=== PATIENT | female | born 1980 | race Caucasian/White ===

== ENCOUNTER 2022-10-27 01:35 | Outpatient (CLI) | payer MEDICAID, SELFPAY | END 2022-10-27 01:36 | disposition home or self-care (01) | LOC: AMB 10-30 16:25 | PROVIDERS: PCP Family Medicine; Visit Provider Family Medicine | DX: R06.09 Other forms of dyspnea (principal) | CPT/HCPCS: A0425; A0427 ==

== ENCOUNTER 2022-10-27 02:01 | Inpatient (IN) | payer MEDICAID, SELFPAY ==
[2022-10-27] VITALS (30 sets, daily range): BP systolic 50–131; BP diastolic 28–85; PULSE 94–128; RESP 16–28; TEMP 36.8–38.4; O2SAT 86–100; BMI 17.5
--- NOTE | 2022-10-27 02:17 | CRLHL7_ITS ---
For Patients: As a result of the Century Cures Act, medical imaging exams and procedure reports are released immediately into your electronic medical record. You may view this report before your referring provider. If you have questions, please contact your health care provider. INDICATION: Pneumonia TECHNIQUE: Chest radiograph 2 views COMPARISON: None FINDINGS: Mediastinum: The mediastinum is normal in appearance. The heart silhouette is normal in size and morphology. Lung: Severe bilateral patchy airspace consolidation is present consistent with pneumonia. No sign of pleural effusion seen. No pneumothorax is identified. Bone and Soft tissue: Unremarkable for age. IMPRESSION: 1. Severe bilateral patchy airspace consolidation is present and likely due to pneumonia. Follow-up imaging is recommended to document resolution. Dictated by Nav New MD @ 10/27/2022 3:02:55 AM Dictated by: Nav New MD @ 10/27/2022 03:03:02 (Electronically Signed)
[2022-10-27] MEDS: ACETAMINOPHEN 500 MG TABLET 1000 MG PO (02:19)
--- NOTE | 2022-10-27 02:20 | ED.GENADULT ---
HPI - General Adult General Time Seen by Provider: 02:15 Date Seen: 10/27/22 Chief complaint: Shortness of Breath/Dyspnea Stated complaint: Shortness of breath Time Seen by Provider: 10/27/22 02:17 Source: patient Mode of arrival: EMS Limitations: no limitations History of Present Illness HPI narrative: Patient is a 42-year-old female who has been ill for the past five days with cough, shortness of breath, body aches, fever to an unknown degree. She was seen in the clinic a couple of days ago but no treatment was given. Today her mother took her to urgent care in [place] and she was diagnosed with bilateral pneumonia and given a shot of Rocephin and started on Levaquin. She has had one dose of the Levaquin so far. They suggested that she be admitted but she refused and just wanted to go to her mother's home. She has been unable to sleep because of cough and body aches and shortness of breath. She is brought in by EMS. She has not had any Tylenol or ibuprofen in almost 24 hours. She states that she is drinking well but is not eating. No vomiting or diarrhea. She was tested for COVID and influenza in those results apparently were negative. I cannot access those records or her chest x-ray. She tells me that the pneumonia was ?everywhere ?. She has never had pneumonia before. She has a 1/2 pack per day smoker. Her only medication is gabapentin p.r.n. for anxiety. Related Data Home Medications Medication Instructions Recorded Confirmed gabapentin 400 mg capsule 400 mg PO TID 10/27/22 10/27/22 levofloxacin 500 mg tablet 500 mg PO DAILY 10/27/22 10/27/22 omeprazole 20 mg capsule,delayed 20 mg PO DAILY 10/27/22 10/27/22 release ondansetron 4 mg disintegrating 4 mg PO Q8-12H PRN 10/27/22 10/27/22 tablet Allergies Allergy/AdvReac Type Severity Reaction Status Date / Time No Known Drug Allergies Allergy Verified 10/27/22 02:26 Review of Systems Narrative: Review of systems is outlined above otherwise noted to be negative. [facility] Medical History (Updated 10/27/22 @ 03:14 by Avelino Jackson MD) Community acquired pneumonia Generalized anxiety disorder Social History (Updated 10/27/22 @ 03:13 by Avelino aJckson MD) Narrative: Single, smoker, works for a [employer] company Exam Narrative: Exam Narrative: Vitals noted. O2 sat is 92% on room air. She does appear ill. She is tachycardic in the 130s. HEENT: Conjunctiva clear. Tympanic membranes are pearly white bilaterally. Posterior pharynx is clear without erythema or exudate. Mucous membranes are dry. Neck is supple without adenopathy, thyromegaly, carotid bruit. Lungs: Coarse and congested with harsh rhonchi throughout. Mild expiratory wheezes. No accessory muscle use. There is pain with deep inspiration and with coughing. Heart: Tachycardic but regular without murmur. Abdomen: Soft and nontender. No guarding, rigidity, rebound. Bowel sounds are normal. No palpable masses. Extremities: No cyanosis or edema. Good distal pulses. Skin: No abnormalities noted of the exposed skin. Neurologic: Awake, alert, fully oriented. Neurologic exam is nonfocal. Const: Vital Signs, click to edit/add: Vital Signs - 24 hr 10/27/22 02:17 10/27/22 02:55 10/27/22 03:00 Temperature 101.0 F H Pulse Rate 126 H 118 H Pulse Rate [Left P ulse Oximeter] 128 H Respiratory Rate 28 H Blood Pressure Blood Pressure [Le ft Upper Arm] 131/64 Pulse Oximetry 100 86 L 92 Oxygen Delivery Me thod Nasal Cannula Fraction of Inspir ed Oxygen 0.44 10/27/22 03:04 10/27/22 03:05 10/27/22 03:16 Temperature Pulse Rate 120 H 121 H Pulse Rate [Left P ulse Oximeter] Respiratory Rate Blood Pressure 50/28 L 109/85 128/74 Blood Pressure [Le ft Upper Arm] Pulse Oximetry 95 92 Oxygen Delivery Me thod Fraction of Inspir ed Oxygen Course Course Hospital Course: Patient seen and examined. She is tachycardic and does appear ill. IV is established and she is given a 1 L bolus of normal saline, Tylenol 1000 mg orally, Toradol 15 mg IV. Labs a chest x-ray are ordered. Reevaluation(s) Reevaluation #1: EKG shows sinus tachycardia with a rate of 134. No acute ST or T-wave changes. Chest x-ray shows bilateral multi lobar pneumonia. CBC is normal. BMP shows a sodium 122. At times patient's O2 sats dropped to 85% and she is started on 2 L of nasal cannula oxygen. D-dimer still pending but I did order a CT of her chest with IV contrast and we will contact [facility] for admission. Reevaluation #2: D-dimer has returned at 3.43. CT scan confirms multi lobar pneumonia but no pulmonary embolism. She received 1 g of Rocephin in urgent care and I gave her another 1 g dose here. I contacted [facility] who agreed to admission. Vital Signs Vital signs: Initial Vital Signs Temperature 101.0 F H 10/27/22 02:17 Temperature Source Temporal Artery Scan 10/27/22 02:17 Pulse Rate 128 H 10/27/22 02:17 Pulse Rhythm 10/27/22 02:17 Respiratory Rate 28 H 10/27/22 02:17 Blood Pressure 131/64 10/27/22 02:17 Blood Pressure Mean 86 10/27/22 02:17 Blood Pressure Position High-Fowlers 10/27/22 02:17 Pulse Oximetry 100 10/27/22 02:17 Oxygen Delivery Method 10/27/22 02:17 Fraction of Inspired Oxygen 0.44 10/27/22 02:17 Vital Signs Temperature 101.0 F H 10/27/22 02:17 Pulse Rate 128 H 10/27/22 02:17 Respiratory Rate 28 H 10/27/22 02:17 Blood Pressure 131/64 10/27/22 02:17 Pulse Oximetry 100 10/27/22 02:17 Oxygen Delivery Method 10/27/22 02:17 Fraction of Inspired Oxygen 0.44 10/27/22 02:17 Temperature 101.0 F H 10/27/22 02:17 Pulse Rate 121 H 10/27/22 03:05 Respiratory Rate 28 H 10/27/22 02:17 Blood Pressure 128/74 10/27/22 03:16 Pulse Oximetry 92 10/27/22 03:05 Oxygen Delivery Method 10/27/22 02:17 Fraction of Inspired Oxygen 0.44 10/27/22 02:17 Medical Decision Making Lab Data Labs: Lab Results 10/27/22 10/27/22 10/27/22 Range/Units 02:40 02:40 02:40 WBC 6.83 (4.50-11.00) K/uL RBC 4.41 (4.00-5.20) m/uL Hgb 12.8 (12.0-16.0) gm/dL Hct 37.9 (33.0-51.0) % MCV 86 (80-100) fL MCH 29 (26-34) pg MCHC 34 (32-36) gm/dL RDW Coeff of Bib 13.0 (11.5-15.5) % Plt Count 223 (140-440) K/uL Neut % (Auto) 72.9 H (42.0-72.0) % Lymph % (Auto) 7.8 L (20-44) % [place] % (Auto) 17.9 H (0.0-11.0) % Eos % (Auto) 0.3 (0.0-7.0) % Baso % (Auto) 0.1 (0.0-3.0) % Neut # (Auto) 5.00 (1.7-7.0) K/uL Lymph # (Auto) 0.50 L (0.90-2.90) K/uL [place] # (Auto) 1.20 H (0.00-0.90) K/UL Eos # (Auto) 0.02 (0.00-0.50) K/uL Baso # (Auto) 0.01 (0.00-0.30) K/uL Diff Slide Review Acceptable Review (Acceptable) D-Dimer Quant (PE/DVT) 3.43 H (0.00-0.50) ug/ml Sodium 122 L* (135-149) mmol/L Potassium 3.4 L (3.6-5.1) mmol/L Chloride 91 L (96-114) mmol/L Carbon Dioxide 24 (20-32) mmol/L BUN 11 (5-24) mg/dL Creatinine 0.7 (0.5-1.5) mg/dL Estimated GFR 111 ml/min Glucose 110 (60-115) mg/dL Lactate (0.5-1.9) mmol/L Calcium 8.4 (8.4-10.6) mg/dL SARS-CoV-2 (PCR) (Negative) 10/27/22 10/27/22 Range/Units 02:40 03:05 WBC (4.50-11.00) K/uL RBC (4.00-5.20) m/uL Hgb (12.0-16.0) gm/dL Hct (33.0-51.0) % MCV (80-100) fL MCH (26-34) pg MCHC (32-36) gm/dL RDW Coeff of Bib (11.5-15.5) % Plt Count (140-440) K/uL Neut % (Auto) (42.0-72.0) % Lymph % (Auto) (20-44) % [place] % (Auto) (0.0-11.0) % Eos % (Auto) (0.0-7.0) % Baso % (Auto) (0.0-3.0) % Neut # (Auto) (1.7-7.0) K/uL Lymph # (Auto) (0.90-2.90) K/uL [place] # (Auto) (0.00-0.90) K/UL Eos # (Auto) (0.00-0.50) K/uL Baso # (Auto) (0.00-0.30) K/uL Diff Slide Review (Acceptable) D-Dimer Quant (PE/DVT) (0.00-0.50) ug/ml Sodium (135-149) mmol/L Potassium (3.6-5.1) mmol/L Chloride (96-114) mmol/L Carbon Dioxide (20-32) mmol/L BUN (5-24) mg/dL Creatinine (0.5-1.5) mg/dL Estimated GFR ml/min Glucose (60-115) mg/dL Lactate 1.5 (0.5-1.9) mmol/L Calcium (8.4-10.6) mg/dL SARS-CoV-2 (PCR) Negative SARS-CoV-2 (Negative) Discharge Plan Discharge Clinical Impression: Community acquired pneumonia Patient Disposition: Admitted As Inpatient Condition: Stable
[2022-10-27] MEDS: 0.9 % SODIUM CHLORIDE 1000 ml 1,000 ML IV (02:40)
[2022-10-27] MEDS: KETOROLAC 15 MG/ML inj IVP ×3 (02:40→18:26)
[2022-10-27 02:44] LABS: Lactate* 1.5 mmol/L (0.5-1.9)
[2022-10-27 02:47] LABS: Basophils Absolute Auto 0.01 K/uL (0.00-0.30); Basophils Percent Auto 0.1 % (0.0-3.0); Eosinophils Absolute Auto 0.02 K/uL (0.00-0.50); Eosinophils Percent Auto 0.3 % (0.0-7.0); Hematocrit 37.9 % (33.0-51.0); Hemoglobin* 12.8 gm/dL (12.0-16.0); Immature Granulocytes Abs Auto 0.07 K/uL (0.00-0.30); Lymphocytes Percent Auto 7.8 % (20-44); Mean Corpuscular HGB Conc 34 gm/dL (32-36); Mean Corpuscular Hemoglobin 29 pg (26-34); Mean Corpuscular Volume 86 fL (80-100); Monocytes Percent Auto 17.9 % (0.0-11.0); Neutrophils Percent Auto 72.9 % (42.0-72.0); Platelet Count* 223 K/uL (140-440); Red Blood Count 4.41 m/uL (4.00-5.20); White Blood Count* 6.83 K/uL (4.50-11.00)
[2022-10-27 02:48] LABS: Slide Review Reflex Yes
[2022-10-27 02:49] LABS: Slide Review Acceptable Review (Acceptable)
--- NOTE | 2022-10-27 02:52 | ED.NURSE ---
Patient to radiology via w/c
[2022-10-27 03:00] LABS: Chloride* 91 mmol/L (96-114); Potassium* 3.4 mmol/L (3.6-5.1)
[2022-10-27 03:03] LABS: Carbon Dioxide* 24 mmol/L (20-32); Creatinine* 0.7 mg/dL (0.5-1.5); Estimated Glomerular Filt Rate 111 ml/min
[2022-10-27 03:04] LABS: Blood Urea Nitrogen* 11 mg/dL (5-24); Calcium* 8.4 mg/dL (8.4-10.6); Glucose* 110 mg/dL (60-115)
[2022-10-27 03:05] LABS: Sodium* 122 mmol/L (135-149)
--- NOTE | 2022-10-27 03:06 | CRLHL7_ITS ---
For Patients: As a result of the Century Cures Act, medical imaging exams and procedure reports are released immediately into your electronic medical record. You may view this report before your referring provider. If you have questions, please contact your health care provider. INDICATION: Hypoxia. Pneumonia. TECHNIQUE: CT chest PE was acquired with 50 cc Isovue 370 IV contrast. COMPARISON: Chest x-ray October 27, 2021. FINDINGS: Heart and vasculature: Contrast opacification of the pulmonary arterial tree is adequate. No sign of pulmonary embolism. Heart size is normal. Thoracic aorta and pulmonary artery are normal in caliber. Lungs and pleura: Large dense bilateral air space infiltrates in both upper lobes and both lower lobes. No suspicious nodule. No pleural effusions, pleural thickening, or pneumothorax. Lymph nodes/mediastinum: No mediastinal, hilar, or axillary adenopathy. Chest wall: No masses. Upper abdomen: No acute or significant findings. Bones: Unremarkable for age. IMPRESSION: 1. No pulmonary embolism. 2. Severe bilateral pneumonia. Please note that all CT scans at this facility use dose modulation, iterative reconstruction, and/or weight-based dosing when appropriate to reduce radiation dose to as low as reasonably achievable. Dictated by Ki Doyle MD @ 10/27/2022 4:05:36 AM (Electronically Signed)
[2022-10-27 03:13] LABS: D Dimer Quantitative* 3.43 ug/ml (0.00-0.50)
[2022-10-27 03:42] LABS: SARS PCR* Negative SARS-CoV-2 (Negative)
[2022-10-27] MEDS: cefTRIAXone 1 GM in 0.9 % SODIUM CHLORIDE Mini-bag 100 ML IVPB ×2 (04:48→21:28)
--- NOTE | 2022-10-27 05:37 | ED.NURSE ---
Mini Report sent
--- NOTE | 2022-10-27 05:51 | ED.NURSE ---
Report to LULA Webb, who accepts transfer of patient care. Patient transported to [facility] via cart with all patient belongings.
[2022-10-27] MEDS: LACTATED RINGERS 1000 ML 1,000 ML 125 ML IV ×2 (06:00→14:09)
--- NOTE | 2022-10-27 07:50 | PC.NURSE ---
Admit 0600 Pt admitted from ER into 260 with pneumonia. Alert and oriented. Pleasant and cooperative. Reports 7/10 pain to chest, back and abdomen with coughing/movement. Requiring 1L of supplemental oxygen to maintain sats >90%. LR at 125mL/hr. Alayna Ribera, present at bedside.
--- NOTE | 2022-10-27 07:58 | P.CCN_ITS ---
Assessment and Plan Assessment and plan (1) Hypoxia: Status: Acute (2) Hyponatremia: Status: Acute (3) Community acquired pneumonia: Status: Acute (4) Generalized anxiety disorder: Status: Acute Plan [facility] Hospitalist Consultation 42-year-old female referred for the ER for treatment of pneumonia and acute hypoxic respiratory failure. She has been sick for the past 5 days noting cough, shortness of breath body aches and fevers. She has had difficulty sleeping because of the cough and has a poor appetite although notes that she is drinking well just not eating. The cough is productive of sputum. She had diarrhea for a few days but that resolved. She was seen in urgent care on October 26 and was diagnosed with bilateral pneumonia. Patient and mother note that influenza, rsv, covid were negative. She was given an IM Rocephin around 7pm and started on Levaquin which she took around 10pm. They advised admission to the hospital but she refused and went to her mother's home but due to her condition, she was subsequently brought to the ER by EMS tonight. In the ER she was found to be febrile to 101, tachycardic to 128 with a blood pressure 131/64 and sats were in the 80s on room air. Improved to 90s on [address] scan was done which confirms multilobar pneumonia and excludes pulmonary embolism. Most notable laboratory studies includes a sodium of 122. Creatinine WBC, hemoglobin and platelets as well as lactic acid, BUN and creatinine are all normal. COVID negative She received 1 L fluids, Toradol and 1 gram ceftriaxone (had received 1 gram prior IM in urgent care). She reports the Toradol helped with her generalized pain, has some abdominal discomfort which she attributes to her coughing. In the past she was hospitalized related to alcohol use but reports that is not longer an issue and she rarely consumes alcohol. She describes herself as always being thin but her mother thinks she is too skinny and has not been this thin in quite awhile. Does not endorse unintentional weight loss. Notes that when she is anxious her appetite is poor. Home Medications: see EMR: Includes GABApentin for anxiety, recently started levofloxacin For pneumonia. Pertinent Medical History: problematic alcohol use in the past but resolved. Anxiety Pertinent Social History: Single, works seasonally for a [employer] company thus has not started back yet for this season. Does smoke 1 ppd cigarettes per day. Marijuana occasionally, Exam (performed via interactive video with assistance of bedside nurse): General: alert, cooperative, no acute distress, appears acutely ill HEENT: oral mucosa pink and moist without erythema Lungs: decreased throughout without obvious crackle or wheeze CV: regular rate and rhythm without loud murmur rub or gallop Abd: some tenderness in RLQ attributed to couging Ext: no pitting edema noted Skin: no rashes, bruises or lesions appreciated on gross visualization of exposed skin Neuro: alert, oriented x 3. facial muscles grossly intact, moves all extremities Assessment and Plan: Multifocal bilateral pneumonia, community-acquired Acute hypoxic respiratory failure associated with above Hyponatremia Hypokalemia Underweight with BMI 17.5 Continue 2 g Rocephin daily. Add azithromycin 500 mg p.o. daily. Please have been time to start it 3 PM and noon respectively since she did get 1 g yesterday and then another gram of ceftriaxone in the ER. Diagnostics ordered and to be followed include sputum culture, Legionella and strep pneumo antigens, Liver panel and magnesium Requested records from UC visit Repeat sodium now, and at noon: further trend per attending. Suspect related to low solute intake and pneumonia but if failing to improve will need urine studies. 20meq Kcl now Resumed gabapentin and omeprazole Will need to follow-up x-ray to ensure resolution BMI of 17.5, unclear cause Thank you for including [facility] in the patients care. This service is available for further assistance as requested by your care team by calling [phone].
[2022-10-27] MEDS: POTASSIUM CHLORIDE 10 MEQ CAPSULE ER 20 MEQ PO (08:35)
[2022-10-27 08:41] LABS: Sodium* 129 mmol/L (135-149)
[2022-10-27 08:44] LABS: Alanine Aminotransferase* 17 U/L (4-35); Alkaline Phosphatase* 102 U/L (40-150); Aspartate Amino Transferase* 20 U/L (12-35); Bilirubin Direct* 0.4 mg/dL (0.0-0.5); Bilirubin Total* 0.5 mg/dL (0.1-1.5); Magnesium* 2.1 mg/dL (1.5-2.6); Total Protein* 6.2 g/dL (6.0-8.3)
[2022-10-27] MEDS: ACETAMINOPHEN 325 MG TABLET 650 MG PO ×3 (09:42→22:56)
[2022-10-27] MEDS: GABAPENTIN 100 MG CAPSULE 400 MG PO (09:42)
[2022-10-27] MEDS: hydrOXYzine pamoate 25 MG CAPSULE PO (09:43)
[2022-10-27] MEDS: AZITHROMYCIN 500 MG in 0.9 % SODIUM CHLORIDE 250 ml 250 ML 255 MG IVPB (09:45)
[2022-10-27 12:37] LABS: Chloride* 107 mmol/L (96-114); Potassium* 3.7 mmol/L (3.6-5.1); Sodium* 132 mmol/L (135-149)
[2022-10-27 12:40] LABS: Carbon Dioxide* 23 mmol/L (20-32); Creatinine* 0.7 mg/dL (0.5-1.5); Est. Creatinine Clearance* 79.44; Estimated Glomerular Filt Rate 111 ml/min
[2022-10-27 12:41] LABS: Blood Urea Nitrogen* 11 mg/dL (5-24); Calcium* 7.6 mg/dL (8.4-10.6); Glucose* 112 mg/dL (60-115)
--- NOTE | 2022-10-27 13:49 | NUTR.NU ---
Nutrition screen complete related to low BMI of 17.5 mg/m2. Patient with hyponatremia and pneumonia. RDN attempted to visit with patient x2. Patient sleeping. This RDN did visit with patient's mom (Alayna and designated caregiver). Alayna reports patient has always been low weight for height. Mom denies any concerns related to nutrition or weight loss. Weight is 104.9#, height is 65. Patient is tolerating a regular diet. Patient ate 90% of breakfast this morning, per nursing. Mom also reports patient's appetite was good this morning and ate well at breakfast. Patient did not eat lunch due to sleeping. Labs reviewed. Skin is intact. RDN to continue to monitor and follow up as needed.
[2022-10-27 14:45] LABS: Appearance Urine Slightly Cloudy (Clear); Bilirubin Urine Negative (Negative); Blood Urine 3+ (Negative); Color Urine Yellow (Yellow); Glucose Urine Negative (Negative); Ketones Urine Negative (Negative); Leukocyte Esterase Urine Negative (Negative); Nitrite Urine Negative (Negative); Protein Urine Negative (Negative); Specific Gravity Urine <= 1.005 (1.000-1.030); Urobilinogen Urine 0.2 (0.2-1.0); pH Urine 6.5 (5.0-8.5)
[2022-10-27 14:52] LABS: Barbiturate Screen Urine Negative (Negative); Benzodiazepines Screen Urine Negative (Negative); Cannabinoid Screen Urine Negative (Negative); Cocaine Screen Urine Negative (Negative); Methadone Screen Urine Negative (Negative); Opiate Screen Urine Negative (Negative); Oxycodone Screen Urine Negative (Negative); Phencyclidine Screen Urine Negative (Negative); Tricyclic Antidepressant Urine Negative (Negative)
[2022-10-27 14:58] LABS: Methamphetamines Screen Urine POSITIVE (Negative)
[2022-10-27 14:59] LABS: Amphetamine Screen Urine POSITIVE (Negative)
[2022-10-27 15:03] LABS: RBC Urine 0-2 (0-2); WBC Urine 0-2 (0-5)
[2022-10-27 15:13] LABS: HIV 1/2/P24 Combo Screen* Negative (Negative)
--- NOTE | 2022-10-27 15:39 | PM.IMHP1 ---
Hospitalist- H&P: HPI History of Present Illness Date Seen: 10/27/22 Chief complaint: Shortness of breath Narrative: Neelima Martinez is a 42 year old female admitted to the hospital with progressive cough, fever and dyspnea for 5 days. About 5 days ago she had onset of what she thought was a cold. Symptoms got worse over the subsequent days including worsening cough, pleuritic chest pain, fever, profound fatigue and malaise and dyspnea. She was initially seen at a clinic in [place] for this on October 23. She was referred to the emergency room for evaluation but apparently went there and found there was a long waiting line to be seen so she went home. That initial visit she was tested for COVID, RSV, influenza and these were all apparently negative. Yesterday she went to an urgent care clinic where she was diagnosed with bilateral pneumonia and referred to a hospital for admission. She declined admission at that time. She did receive Rocephin 1 g in the urgent care and was started on Levaquin. She came to our emergency room as she continued to feel poorly. In our emergency room she was found to be febrile with a temperature of 101? F, tachycardic with a pulse of 126 and hypoxic with O2 sat of 86% on room air. Chest x-ray showed patchy bilateral pneumonia and this was confirmed with CT scan and no finding of pulmonary embolism. She was also found to be hyponatremic with a sodium of 122. She has received Levaquin, ceftriaxone, Zithromax and IV fluids. She reports feeling better today with these treatments. Other associated symptoms include chest pain and shoulder pain associated with coughing. She also has some epigastric abdominal pain associated with coughing. She reports a very poor appetite and has been only drinking water in juice for the last several days. She has had some nonbloody diarrhea. No urinary symptoms. She denies . She does smoke 1 pack of cigarettes per day. Has had very little to smoke this week. No previous history of lung disease or COPD or asthma She is not aware of any exposures to anybody else who has been ill. Review of Systems Narrative: Prior to this week she reports that she was doing well without recent symptoms of illness. [facility] Medical History (Updated 10/27/22 @ 16:08 by Trenton Lamar MD) Alcohol abuse Community acquired pneumonia Generalized anxiety disorder Malnutrition Methamphetamine abuse Surgical History (Updated 10/27/22 @ 15:51 by Trenton Lamar MD) History of tooth extraction Family History (Updated 10/27/22 @ 15:51 by Trenton Lamar MD) Brother Asthma Mother Alcohol dependence Social History (Updated 10/27/22 @ 15:53 by Trenton Lamar MD) Narrative: She lives in [place] with her boyfriend. 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 She smokes up to a pack of cigarettes per day. Currently did not drinking alcohol. She is in [place] because her mom lives here. Code status is full. Highest level of school completed/degree received: some college, no degree Smoking Status: Current every day smoker What tobacco products do you use: cigarettes Do you use any of these nicotine containing products: None Second hand tobacco smoke exposure: No How often do you have a drink containing alcohol: never How often do you have six or more drinks on one occasion: Never AUDIT-C Alcohol total score: 0 Non-prescribed substance use: marijuana (any form) Non-prescribed substance use details: marijuana 1-2 times a week Caffeine: Yes service: No Meds Home Medications and Allergies Home Medications Medication Instructions Recorded Confirmed Type gabapentin 400 mg capsule 400 mg PO TID PRN 10/27/22 10/27/22 History levofloxacin 500 mg tablet 500 mg PO DAILY 10/27/22 10/27/22 History Allergies Allergy/AdvReac Type Severity Reaction Status Date / Time escitalopram [From Lexapro] AdvReac Shakiness Verified 10/27/22 07:49 Exam Narrative: Exam Narrative: She is sleeping and arouses to voice. She is then is alert and oriented to her circumstances. She is pleasant cooperative. She gives her own history. Head is without trauma. Eyes normal. Oropharynx is normal. Neck is supple without mass or adenopathy. Respirations with mild increased work of breathing and rate of breathing. She has relatively diffuse crackles posteriorly and anteriorly. Cardiovascular: S1, S2, regular tachycardia. No murmur gallop or rub. Abdomen: Bowel sounds active. Abdomen is soft with mild epigastric tenderness. There is no mass. External genitalia normal. Extremities with intact pulses and good capillary refill. No edema. No skin rash. She moves all 4 extremities well. Const: Vital Signs, click to edit/add: Vital Signs - 24 hr 10/27/22 02:17 10/27/22 02:55 10/27/22 03:00 Temperature 101.0 F H Pulse Rate 126 H 118 H Pulse Rate [Left P ulse Oximeter] 128 H Pulse Rate [Pulse Oximeter] Respiratory Rate 28 H Blood Pressure Blood Pressure [Le ft Arm] Blood Pressure [Le ft Upper Arm] 131/64 Blood Pressure [Ri ght Arm] Pulse Oximetry 100 86 L 92 Oxygen Delivery Me thod Nasal Cannula Oxygen Flow Rate Fraction of Inspir ed Oxygen 0.44 10/27/22 03:04 10/27/22 03:05 10/27/22 03:16 Temperature Pulse Rate 120 H 121 H Pulse Rate [Left P ulse Oximeter] Pulse Rate [Pulse Oximeter] Respiratory Rate Blood Pressure 50/28 L 109/85 128/74 Blood Pressure [Le ft Arm] Blood Pressure [Le ft Upper Arm] Blood Pressure [Ri ght Arm] Pulse Oximetry 95 92 Oxygen Delivery Me thod Oxygen Flow Rate Fraction of Inspir ed Oxygen 10/27/22 03:39 10/27/22 03:40 10/27/22 03:48 Temperature Pulse Rate 112 H 107 H 106 H Pulse Rate [Left P ulse Oximeter] Pulse Rate [Pulse Oximeter] Respiratory Rate Blood Pressure 128/71 Blood Pressure [Le ft Arm] Blood Pressure [Le ft Upper Arm] Blood Pressure [Ri ght Arm] Pulse Oximetry 88 88 90 Oxygen Delivery Me thod Oxygen Flow Rate Fraction of Inspir ed Oxygen 10/27/22 04:00 10/27/22 04:01 10/27/22 04:16 Temperature Pulse Rate 101 H 104 H 103 H Pulse Rate [Left P ulse Oximeter] Pulse Rate [Pulse Oximeter] Respiratory Rate Blood Pressure 126/69 128/71 Blood Pressure [Le ft Arm] Blood Pressure [Le ft Upper Arm] Blood Pressure [Ri ght Arm] Pulse Oximetry 92 90 97 Oxygen Delivery Me thod Oxygen Flow Rate Fraction of Inspir ed Oxygen 10/27/22 04:20 10/27/22 04:31 10/27/22 04:31 Temperature Pulse Rate 103 H 106 H 104 H Pulse Rate [Left P ulse Oximeter] Pulse Rate [Pulse Oximeter] Respiratory Rate Blood Pressure 125/70 Blood Pressure [Le ft Arm] Blood Pressure [Le ft Upper Arm] Blood Pressure [Ri ght Arm] Pulse Oximetry 99 99 99 Oxygen Delivery Me thod Oxygen Flow Rate Fraction of Inspir ed Oxygen 10/27/22 04:41 10/27/22 04:46 10/27/22 05:01 Temperature Pulse Rate 108 H 105 H 97 Pulse Rate [Left P ulse Oximeter] Pulse Rate [Pulse Oximeter] Respiratory Rate Blood Pressure 130/74 115/73 Blood Pressure [Le ft Arm] Blood Pressure [Le ft Upper Arm] Blood Pressure [Ri ght Arm] Pulse Oximetry 98 99 99 Oxygen Delivery Me thod Oxygen Flow Rate Fraction of Inspir ed Oxygen 10/27/22 05:01 10/27/22 05:16 10/27/22 05:21 Temperature Pulse Rate 101 H 102 H 98 Pulse Rate [Left P ulse Oximeter] Pulse Rate [Pulse Oximeter] Respiratory Rate Blood Pressure 126/74 Blood Pressure [Le ft Arm] Blood Pressure [Le ft Upper Arm] Blood Pressure [Ri ght Arm] Pulse Oximetry 98 98 98 Oxygen Delivery Me thod Oxygen Flow Rate Fraction of Inspir ed Oxygen 10/27/22 05:31 10/27/22 05:40 10/27/22 06:44 Temperature 98.8 F Pulse Rate 99 94 Pulse Rate [Left P ulse Oximeter] Pulse Rate [Pulse Oximeter] 99 Respiratory Rate 24 Blood Pressure 116/72 Blood Pressure [Le ft Arm] Blood Pressure [Le ft Upper Arm] Blood Pressure [Ri ght Arm] 103/69 Pulse Oximetry 100 100 92 Oxygen Delivery Me thod Nasal Cannula Oxygen Flow Rate 1 Fraction of Inspir ed Oxygen 10/27/22 11:00 10/27/22 07:30 10/27/22 07:00 Temperature 98.2 F Pulse Rate Pulse Rate [Left P ulse Oximeter] Pulse Rate [Pulse Oximeter] 100 Respiratory Rate 20 20 Blood Pressure Blood Pressure [Le ft Arm] 116/69 Blood Pressure [Le ft Upper Arm] Blood Pressure [Ri ght Arm] Pulse Oximetry 91 91 91 Oxygen Delivery Me thod Nasal Cannula Nasal Cannula Nasal Cannula Oxygen Flow Rate 2 2 2 Fraction of Inspir ed Oxygen Hospitalist - H&P: Result Labs Labs: Short CBC 10/27/22 Range/Units 02:40 WBC 6.83 (4.50-11.00) K/uL Hgb 12.8 (12.0-16.0) gm/dL Hct 37.9 (33.0-51.0) % Plt Count 223 (140-440) K/uL BMP 10/27/22 10/27/22 10/27/22 02:40 08:20 12:15 Sodium 122 L* 129 L 132 L Potassium 3.4 L 3.7 Chloride 91 L 107 Carbon Dioxide 24 23 BUN 11 11 Creatinine 0.7 0.7 Glucose 110 112 Calcium 8.4 7.6 L Liver Function 10/27/22 Range/Units 08:20 Total Bilirubin 0.5 (0.1-1.5) mg/dL Direct Bilirubin 0.4 (0.0-0.5) mg/dL AST 20 (12-35) U/L ALT 17 (4-35) U/L Alkaline Phosphatase 102 (40-150) U/L Albumin 3.0 L (3.3-5.0) g/dL Urine 10/27/22 Range/Units 14:17 Urine Color Yellow (Yellow) Urine Appearance Slightly Cloudy A (Clear) Urine pH 6.5 (5.0-8.5) Ur Specific [place] <= 1.005 (1.000-1.030) Urine Protein Negative (Negative) Urine Glucose (UA) Negative (Negative) Imaging CT scan - chest: Attestation: I have reviewed the pertinent imaging results. Radiologist's impression: INDICATION: Hypoxia. Pneumonia. TECHNIQUE: CT chest PE was acquired with 50 cc Isovue 370 IV contrast. COMPARISON: Chest x-ray October 27, 2021. FINDINGS: Heart and vasculature: Contrast opacification of the pulmonary arterial tree is adequate. No sign of pulmonary embolism. Heart size is normal. Thoracic aorta and pulmonary artery are normal in caliber. Lungs and pleura: Large dense bilateral air space infiltrates in both upper lobes and both lower lobes. No suspicious nodule. No pleural effusions, pleural thickening, or pneumothorax. Lymph nodes/mediastinum: No mediastinal, hilar, or axillary adenopathy. Chest wall: No masses. Upper abdomen: No acute or significant findings. Bones: Unremarkable for age. IMPRESSION: 1. No pulmonary embolism. 2. Severe bilateral pneumonia. Assessment and Plan Assessment and plan (1) Sepsis with acute hypoxic respiratory failure: Problem comment: Tachycardia, fever, hypoxia with pneumonia. Modestly clinically improved over the day today. Continue ceftriaxone and Zithromax Status: Acute (2) Community acquired pneumonia: Problem comment: Relatively severe multifocal pneumonia. Consider other possible etiologies including immunosuppression and bacteremia. Status: Acute (3) Hyponatremia: Problem comment: Likely due to pneumonia and poor oral intake. Likely this is acute hyponatremia. Sodium is correcting too quickly today. Will stop lactated Ringer's and initiate D5W and trend sodium. Status: Acute (4) Methamphetamine abuse: Status: Acute (5) Generalized anxiety disorder: Status: Acute (6) Malnutrition: Problem comment: BMI of 17.5. Albumin of 3.0. Uncertain how much of this is acute and how much is chronic. Follow while hospitalized and then as outpatient Status: Acute Plan Patient remained hospitalized pending clinical improvement. Close monitoring of cardio respiratory status. Close monitoring of vital signs and sodium. Total time spent today is 75 minutes, 50 minutes in coordination of care and discussing with patient and other providers evaluation management of pneumonia.
[2022-10-27] MEDS: GUAIF/DM 200-20 MG/20 ML 118 ML LIQUID PO ×2 (15:44→20:40)
[2022-10-27] MEDS: 5 % DEXTROSE 1000 ML 1,000 ML 100 ML IV ×2 (15:45→18:45)
--- NOTE | 2022-10-27 18:51 | PC.NURSE ---
Pt is alert and oriented, sleepy this shift intermit, resting off and on. Pt c/o pain 8/10 to shoulder, chest, belly and back, PRN Tylenol and Toradol admin and pt states effectiveness. Pt up w/ SBA to bathroom w/ IV pole maneuvering. Pt on 2L sating low 90s%, but did have temp of 101.2 this evening along with sinus tach, provider updated and aware, no new orders continue with abx for PNA. Tolerating diet, voiding large amounts of pale urine, a couple loose stools this shift. Sputum culture sent, UA sent. Pt on D5 at 100ml/hr. Mom at bedside, supportive. Pt uses call light appropriately.
[2022-10-27 20:20] LABS: Sodium* 134 mmol/L (135-149)
[2022-10-27] MEDS: ENOXAPARIN 30 MG/0.3ML INJ SUBCUT (21:30)
[2022-10-27] MEDS: SODIUM CHLORIDE 0.9 % (FLUSH) 10 ML SYRINGE 5 ML IVF (21:31)
[2022-10-27] MEDS: MELATONIN 3 MG TABLET PO (22:59)
[2022-10-28] VITALS (11 sets, daily range): BP systolic 116–137; BP diastolic 68–81; PULSE 92–106; RESP 20–22; TEMP 36.8–37.7; O2SAT 87–95
[2022-10-28] MEDS: KETOROLAC 15 MG/ML inj IVP ×3 (00:53→19:03)
[2022-10-28] MEDS: hydrOXYzine pamoate 25 MG CAPSULE PO ×3 (02:47→21:59)
[2022-10-28] MEDS: GABAPENTIN 100 MG CAPSULE 400 MG PO (02:47)
[2022-10-28] MEDS: cefTRIAXone 2 GM in 0.9 % SODIUM CHLORIDE Mini-bag 100 ML IVPB (05:56)
[2022-10-28 06:29] LABS: Eosinophils Absolute Auto 0.06 K/uL (0.00-0.50); Eosinophils Percent Auto 0.6 % (0.0-7.0); Hematocrit 32.2 % (33.0-51.0); Hemoglobin* 10.9 gm/dL (12.0-16.0); Immature Granulocytes Abs Auto 0.12 K/uL (0.00-0.30); Immature Granulocytes Pct Auto 1.2 %; Lymphocytes Percent Auto 6.9 % (20-44); Mean Corpuscular HGB Conc 34 gm/dL (32-36); Mean Corpuscular Hemoglobin 29 pg (26-34); Mean Corpuscular Volume 87 fL (80-100); Monocytes Percent Auto 16.3 % (0.0-11.0); Platelet Count* 219 K/uL (140-440); RDW Coefficient of Variation % 13.2 % (11.5-15.5); Red Blood Count 3.72 m/uL (4.00-5.20); White Blood Count* 10.25 K/uL (4.50-11.00)
--- NOTE | 2022-10-28 06:30 | PC.NURSE ---
Pt is alert and oriented x 3. Pt?posterior lung sounds have inspiratory wheezes and?are diminished. Pt had productive cough with yellow/cream color sputum at beginning of shift 1900, has transitioned into a dry cough overnight. Pt reports 6 out of 10 pain in back and abdomen from coughing. Pt up in room Ind but calls for assistance with IV pole when going to bathroom. Pt tolerating a regular diet.
[2022-10-28 06:32] LABS: Slide Review Reflex No
[2022-10-28 06:46] LABS: Chloride* 107 mmol/L (96-114); Potassium* 3.5 mmol/L (3.6-5.1); Sodium* 134 mmol/L (135-149)
[2022-10-28 06:49] LABS: Creatinine* 0.7 mg/dL (0.5-1.5); Est. Creatinine Clearance* 79.44; Estimated Glomerular Filt Rate 111 ml/min
[2022-10-28 06:50] LABS: Blood Urea Nitrogen* 8 mg/dL (5-24); Calcium* 7.7 mg/dL (8.4-10.6); Carbon Dioxide* 26 mmol/L (20-32); Glucose* 116 mg/dL (60-115)
[2022-10-28] MEDS: ACETAMINOPHEN 325 MG TABLET 650 MG PO ×3 (07:20→22:02)
[2022-10-28] MEDS: GUAIF/DM 200-20 MG/20 ML 118 ML LIQUID PO ×3 (07:21→21:59)
[2022-10-28 07:23] LABS: C Reactive Protein* 35.9 mg/dL (0.5-1.0)
[2022-10-28 07:58] LABS: Lab Add On Test New Spec Needed
[2022-10-28 07:59] LABS: Magnesium* 2.2 mg/dL (1.5-2.6)
[2022-10-28 08:01] LABS: Ionized Calcium* 1.06 mmol/L (1.11-1.30)
[2022-10-28] MEDS: POTASSIUM BICARB 25 MEQ EFFERVESCENT TAB PO ×2 (08:15→10:13)
--- NOTE | 2022-10-28 09:28 | CRLHL7_ITS ---
For Patients: As a result of the Century Cures Act, medical imaging exams and procedure reports are released immediately into your electronic medical record. You may view this report before your referring provider. If you have questions, please contact your health care provider. INDICATION: Follow up pneumonia TECHNIQUE: Chest 1 view. COMPARISON: Chest x-ray 10/27/[address] chest 10/27/2022 FINDINGS: The heart is normal in size. Pulmonary vasculature is within limits. There is persistent bilateral consolidations, somewhat increased in the right upper lobe. Haziness at the right lung base, represent a pleural effusion. Bones are unremarkable. IMPRESSION: Persistent bilateral consolidations, slightly worsening within the right upper lobe. Increasing haziness at the right lung base, may represent a developing pleural effusion. Dictated by Mahsa Dobbins MD @ 10/28/2022 10:22:56 AM (Electronically Signed)
[2022-10-28] MEDS: PIPERACILLIN/TAZOBACTAM 3.375 GM in 0.9 % SODIUM CHLORIDE Mini-bag 100 ML IVPB ×3 (10:14→22:02)
[2022-10-28] MEDS: SODIUM CHLORIDE 0.9 % (FLUSH) 10 ML SYRINGE 5 ML IVF ×2 (10:14→20:43)
--- NOTE | 2022-10-28 10:31 | RESP.RT ---
PEP-IS; Patient lying in bed resting, respiratory rate 18-22/minute, breathing regular/easy, slightly shallow. On Nasal Cannula (NC) 3 Lpm, SaO2 94%, removed from NC, SaO2 decreased to 88% in 3 minutes, returned to NC SaO2 increased to 94%, remained steady. Bilateral Breath Sounds, with patient taking deep breath both upper lobes diminished with fine crackles noted, Both lower lobes noted with fine/coarse crackles, not as diminished as upper lobes, no wheezing noted. Patient used IS X4 with good effort, promoted good cough for yellow/creme colored, thick secretions. PEP started with patient, explained use of Aerobika, for increased mobilization of secretions and lung recruitment, information on cleaning. Patient made good expiratory effort, with good chest shake, X6. Had patient feel chest shake during exhalation to help understand use, patient understands and verbally states so. PEP also promoted cough for same. With use of IS, PEP, and cough and deep breath SaO2 increased to 96%. RT and Nurse will continue to encourage patient to use IS, PEP and cough and deep breath.
--- NOTE | 2022-10-28 15:33 | P.IMPN_ITS ---
Progress Note: A&P Assessment and plan (1) Sepsis with acute hypoxic respiratory failure: Problem details: Tachycardia, fever, hypoxia with pneumonia. Appears ill today, worse than what was stated yesterday. A recheck to chest x-ray the results are above, which does show slight worsening. Expand antibiotic coverage to Zosyn and vanco, continue azithromycin for atypical coverage and discontinue the Rocephin. Vibratory pep has been started, continue this. Continue nebs p.r.n.. Right-sukhdeep ed chest pain is pleuritic, she does have a small possible pleural effusion which is likely parapneumonic on chest x-ray. I spoke with Dr. Cristobal from General surgery about this pleural effusion and whether not it was enough to do a thoracentesis to look for empyema. She noted that it was not enough fluid to do so at this time. Will continue to monitor symptoms and if worsening further despite expansion of antibiotics, repeat chest x-ray. Status: Acute (2) Community acquired pneumonia: Problem details: Relatively severe multifocal pneumonia. Consider other possible etiologies including immunosuppression and bacteremia. SARs CoV 2 PCR is negative. HIV 1 and 2 are negative. Urine Legionella and strep pneumonia antigens are pending. Status: Acute (3) Tobacco abuse: Status: Chronic (4) Malnutrition: Problem details: BMI of 17.5. Albumin of 3.0. Uncertain how much of this is acute and how much is chronic. Follow while hospitalized and then as outpatient Status: Acute (5) Methamphetamine abuse: Status: Acute (6) Hyponatremia: Problem details: Likely due to pneumonia and poor oral intake. Likely this is acute hyponatremia. Sodium was corrected quickly yesterday, but she remains neurologically intact. Sodium is at 134 and stable, further correction needed. Monitor. Status: Acute (7) Generalized anxiety disorder: Status: Chronic Subjective Time Seen by Provider: 09:20 Date Seen: 10/28/22 Interval history: Neelima complains of feeling worse today. She has had right sided chest pain since her illness began, but it is much worse today with any movement or deep breath. She briefly required 1L more oxygen this morning, but this improved after vibratory PEP. Exam Narrative: Exam Narrative: General: Appears ill. Thin, almost cachectic. Awake, alert, oriented x3. No pallor. No jaundice. Cardiovascular: Mildly tachycardic, regular. No murmurs, gallops, or rubs. Respiratory: Fine crackles throughout, no wheezes. Abdomen: Bowel sounds present. Soft, nondistended, nontender. Extremities: No pedal edema. Const: Vital Signs, click to edit/add: Vital Signs - 24 hr 10/27/22 17:42 10/27/22 21:10 10/27/22 23:00 Temperature 101.2 F H 98.7 F Pulse Rate [Pulse Oximeter] 112 H 109 H 109 H Respiratory Rate 16 16 16 Blood Pressure [Le ft Arm] 126/68 119/60 Pulse Oximetry 94 86 L Oxygen Delivery Me thod Nasal Cannula Nasal Cannula Oxygen Flow Rate 2 2 10/27/22 23:00 10/27/22 23:00 10/28/22 02:34 Temperature 99.3 F 99.0 F Pulse Rate [Pulse Oximeter] 103 H 96 Respiratory Rate 20 20 20 Blood Pressure [Le ft Arm] 121/70 128/71 Pulse Oximetry 93 93 92 Oxygen Delivery Me thod Nasal Cannula Nasal Cannula Nasal Cannula Oxygen Flow Rate 2.5 2.5 2.5 10/28/22 07:00 10/28/22 07:00 10/28/22 07:00 Temperature 99.1 F Pulse Rate [Pulse Oximeter] 101 H 101 H Respiratory Rate 20 20 Blood Pressure [Le ft Arm] 129/77 Pulse Oximetry 92 92 Oxygen Delivery Me thod Nasal Cannula Nasal Cannula Oxygen Flow Rate 2 2 10/28/22 08:45 10/28/22 08:55 10/28/22 10:25 Temperature Pulse Rate [Pulse Oximeter] Respiratory Rate 20 20 20 Blood Pressure [Le ft Arm] Pulse Oximetry 87 L 92 94 Oxygen Delivery Me thod Room Air Nasal Cannula Nasal Cannula Oxygen Flow Rate 2 3 3 10/28/22 10:25 10/28/22 11:00 Temperature 98.8 F Pulse Rate [Pulse Oximeter] 94 Respiratory Rate 20 20 Blood Pressure [Le ft Arm] 120/78 Pulse Oximetry 94 95 Oxygen Delivery Me thod Nasal Cannula Nasal Cannula Oxygen Flow Rate 3 2 Labs Labs: Laboratory Results - last 24 hr 10/27/22 10/28/22 10/28/22 20:04 05:41 05:41 WBC 10.25 RBC 3.72 L Hgb 10.9 L Hct 32.2 L MCV 87 MCH 29 MCHC 34 RDW Coeff of Bib 13.2 Plt Count 219 Neut % (Auto) 75.0 H Lymph % (Auto) 6.9 L Cannon % (Auto) 16.3 H Eos % (Auto) 0.6 Baso % (Auto) 0.0 Neut # (Auto) 7.70 H Lymph # (Auto) 0.70 L Cannon # (Auto) 1.70 H Eos # (Auto) 0.06 Baso # (Auto) 0.00 Sodium 134 L 134 L Potassium 3.5 L Chloride 107 Carbon Dioxide 26 BUN 8 Creatinine 0.7 Estimated Creat Clear 79.44 Estimated GFR 111 Glucose 116 H Calcium 7.[address] Magnesium 2.2 C-Reactive Protein 35.9 H Procalcitonin 25.50 H 10/28/22 07:55 WBC RBC Hgb Hct MCV MCH MCHC RDW Coeff of Bib Plt Count Neut % (Auto) Lymph % (Auto) Cannon % (Auto) Eos % (Auto) Baso % (Auto) Neut # (Auto) Lymph # (Auto) Cannon # (Auto) Eos # (Auto) Baso # (Auto) Sodium Potassium Chloride Carbon Dioxide BUN Creatinine Estimated Creat Clear Estimated GFR Glucose Calcium Ionized Calcium Rd 1.06 L Magnesium C-Reactive Protein Procalcitonin Ordering Physician: Abi Dennis M.D. Date of Service: 10/28/22 Procedure(s): XR chest 1V portable Accession Number(s): [id number] cc: Abi Dennis M.D.; Lorenza Soni M.D.~ For Patients: As a result of the Century Cures Act, medical imaging exams and procedure reports are released immediately into your electronic medical record. You may view this report before your referring provider. If you have questions, please contact your health care provider. INDICATION: Follow up pneumonia TECHNIQUE: Chest 1 view. COMPARISON: Chest x-ray 10/27/[address] chest 10/27/2022 FINDINGS: The heart is normal in size. Pulmonary vasculature is within limits. There is persistent bilateral consolidations, somewhat increased in the right upper lobe. Haziness at the right lung base, represent a pleural effusion. Bones are unremarkable. IMPRESSION: Persistent bilateral consolidations, slightly worsening within the right upper lobe. Increasing haziness at the right lung base, may represent a developing pleural effusion. Dictated by Mahsa Dobbins MD @ 10/28/2022 10:22:56 AM (Electronically Signed)
--- NOTE | 2022-10-28 19:25 | PC.NURSE ---
Pt is alert and oriented, pleasant and cooperative. Vitals stable, afebrile this shift. On 2L NC, sating mid 90s%. Using Aerobika and IS, reaching 1000ml on IS and having good sputum production after Aerobika. Pt up SBA w/ IV pole maneuvering. Voiding without issue. Pt amb in hallway a short distance this shift, tolerated. PRN Tylenol, Toradol, Vistaril and cough syrup admin this shift with good result for overall pain from coughing. Tolerating diet. Has call light within reach and uses appropriately.
[2022-10-28] MEDS: AZITHROMYCIN 250 MG TABLET 500 MG PO (20:42)
[2022-10-28] MEDS: ENOXAPARIN 30 MG/0.3ML INJ SUBCUT (20:43)
[2022-10-28] MEDS: MELATONIN 3 MG TABLET PO (21:59)
[2022-10-29] VITALS (10 sets, daily range): BP systolic 116–148; BP diastolic 68–82; PULSE 89–109; RESP 16–24; TEMP 36.6–37.3; O2SAT 91–97
[2022-10-29 00:19] LABS: Strep pneumoniae Ag, Urine Negative (Negative)
[2022-10-29] MEDS: GUAIF/DM 200-20 MG/20 ML 118 ML LIQUID PO ×5 (01:58→23:11)
[2022-10-29] MEDS: KETOROLAC 15 MG/ML inj IVP ×3 (01:59→16:03)
[2022-10-29] MEDS: PIPERACILLIN/TAZOBACTAM 3.375 GM in 0.9 % SODIUM CHLORIDE Mini-bag 100 ML IVPB ×4 (03:57→22:11)
[2022-10-29] MEDS: ACETAMINOPHEN 325 MG TABLET 650 MG PO ×3 (04:49→19:02)
--- NOTE | 2022-10-29 06:49 | PC.NURSE ---
Status [id number] Alert and oriented. Pleasant and cooperative. PRN toradol and tylenol given for pain. PRN cough medicine given. BP stable. Telemetry monitoring, HR between 80-100. Remains on 2L of supplemental oxygen to maintain sats >90%. Continues on IV antibiotics. Up with stand by. Pt observed resting between cares.
[2022-10-29 07:01] LABS: Basophils Percent Auto 0.1 % (0.0-3.0); Eosinophils Percent Auto 0.2 % (0.0-7.0); Hemoglobin* 9.8 gm/dL (12.0-16.0); Immature Granulocytes Pct Auto 0.9 %; Ionized Calcium* 1.05 mmol/L (1.11-1.30); Lymphocytes Percent Auto 4.6 % (20-44); Mean Corpuscular HGB Conc 33 gm/dL (32-36); Mean Corpuscular Hemoglobin 29 pg (26-34); Mean Corpuscular Volume 88 fL (80-100); Monocytes Percent Auto 9.8 % (0.0-11.0); Neutrophils Percent Auto 84.4 % (42.0-72.0); Platelet Count* 244 K/uL (140-440); RDW Coefficient of Variation % 13.4 % (11.5-15.5); Red Blood Count 3.41 m/uL (4.00-5.20); White Blood Count* 18.84 K/uL (4.50-11.00)
[2022-10-29 07:04] LABS: Slide Review Reflex No
[2022-10-29 07:28] LABS: Chloride* 107 mmol/L (96-114); Potassium* 3.6 mmol/L (3.6-5.1); Sodium* 135 mmol/L (135-149)
[2022-10-29 07:31] LABS: Blood Urea Nitrogen* 9 mg/dL (5-24); Carbon Dioxide* 25 mmol/L (20-32); Creatinine* 0.6 mg/dL (0.5-1.5); Est. Creatinine Clearance* 92.69; Estimated Glomerular Filt Rate 116 ml/min
[2022-10-29 07:32] LABS: Calcium* 7.4 mg/dL (8.4-10.6); Glucose* 108 mg/dL (60-115)
[2022-10-29] MEDS: hydrOXYzine pamoate 25 MG CAPSULE PO ×2 (07:52→16:03)
[2022-10-29] MEDS: SODIUM CHLORIDE 0.9 % (FLUSH) 10 ML SYRINGE 5 ML IVF ×3 (07:53→22:12)
[2022-10-29 08:22] LABS: C Reactive Protein* 31.9 mg/dL (0.5-1.0)
--- NOTE | 2022-10-29 12:41 | RESP.RT ---
Patient up in chair, on room air, SaO2 91%. Breathing regular/easy. BBS diminished, more so RUL, and RLL, left lung landers diminished, fine crackles, with fair air movement. Patient using Aerobika PRN, Good effort, good chest shake, promoted good congested productive cough, moderate to large amount creme/yellow/green thick secretions.
--- NOTE | 2022-10-29 14:38 | P.IMPN_ITS ---
Progress Note: A&P Assessment and plan (1) Sepsis with acute hypoxic respiratory failure: Problem details: Tachycardia, fever, hypoxia with pneumonia. Improving today after expanding IV antibiotic coverage yesterday. Continue Zosyn and vanco, continue azithromycin for atypical coverage. Continue vibratory pep and nebs. Right-sided chest pain is pleuritic with small possible pleural effusion which is likely parapneumonic on chest x-ray. I spoke with Dr. Cristobal from General surgery yesterday about this pleural effusion and whether not it was enough to do a thoracentesis to look for empyema. She noted that it was not enough fluid to do so at this time. Will continue to monitor symptoms and if worsening further despite expansion of antibiotics, repeat chest x-ray. Status: Acute (2) Community acquired pneumonia: Problem details: Relatively severe multifocal pneumonia. Consider other possible etiologies including immunosuppression and bacteremia. SARs CoV 2 PCR is negative. HIV 1 and 2 are negative. Urine Legionella and strep pneumonia antigens are negative. Suspect MRSA pneumonia. Status: Acute (3) Tobacco abuse: Status: Chronic (4) Malnutrition: Problem details: BMI of 17.5. Albumin of 3.0. Uncertain how much of this is acute and how much is chronic. Follow while hospitalized and then as outpatient Status: Acute (5) Methamphetamine abuse: Problem details: She is somewhat hypervolemic despite not being on IV fluids. I will obtain an echocardiogram as she may have a cardiomyopathy secondary to methamphetamine use. Status: Acute (6) Hyponatremia: Problem details: Resolved. Status: Resolved (7) Generalized anxiety disorder: Status: Chronic (8) Hypocalcemia: Problem details: I reviewed her labs and magnesium was within normal limits 2 days ago. Continue to replace calcium with IV calcium gluconate today and start oral calcium carbonate. Status: Acute Subjective Time Seen by Provider: 13:00 Date Seen: 10/29/22 Interval history: Neelima is feeling better today. She was concerned about the possibility of MRSA. Oxygen needs are lower today. Her mother, Lydia, and her uncle, Rui, were in the room and part of the conversation. We discussed pneumonia, antibiotics, fluid status, abstaining from drugs, alcohol, and tobacco. Neelima noted that she has been sober from alcohol for a while now and is very happy and proud about that. She said she has not felt any craving for tobacco since she has been here. Exam Narrative: Exam Narrative: General: No acute distress. Some shortness of breath with movement in the bed. Awake, alert, oriented x3. No pallor. No jaundice. Cardiovascular: Regular rate and rhythm. No murmurs, gallops, or rubs. Respiratory: Fine crackles throughout, more in the bases now, no wheezes. Abdomen: Bowel sounds present. Soft, nondistended, nontender. Extremities: No pedal edema. Const: Vital Signs, click to edit/add: Vital Signs - 24 hr 10/28/22 15:00 10/28/22 15:00 10/28/22 15:00 Temperature 98.4 F Pulse Rate Pulse Rate [Pulse Oximeter] 103 H 103 H Respiratory Rate 20 20 Blood Pressure [Le ft Arm] 131/74 Pulse Oximetry 94 94 Oxygen Delivery Me thod Nasal Cannula Nasal Cannula Oxygen Flow Rate 2 2 10/28/22 15:00 10/28/22 20:40 10/28/22 22:02 Temperature 99 F 99.8 F H Pulse Rate 92 Pulse Rate [Pulse Oximeter] 106 H Respiratory Rate 20 Blood Pressure [Le ft Arm] 137/81 Pulse Oximetry 95 Oxygen Delivery Me thod Nasal Cannula Oxygen Flow Rate 2 10/28/22 23:00 10/28/22 23:00 10/28/22 23:00 Temperature Pulse Rate 99 Pulse Rate [Pulse Oximeter] 106 H Respiratory Rate 20 Blood Pressure [Le ft Arm] Pulse Oximetry 93 Oxygen Delivery Me thod Nasal Cannula Oxygen Flow Rate 2 10/29/22 00:36 10/29/22 00:36 10/29/22 04:30 Temperature 98.2 F 98.2 F 98.5 F Pulse Rate Pulse Rate [Pulse Oximeter] 92 93 Respiratory Rate 22 24 Blood Pressure [Le ft Arm] 116/68 120/82 Pulse Oximetry 94 91 Oxygen Delivery Me thod Nasal Cannula Nasal Cannula Oxygen Flow Rate 2 2 10/29/22 07:00 10/29/22 07:00 10/29/22 07:00 Temperature 97.9 F Pulse Rate Pulse Rate [Pulse Oximeter] 89 89 Respiratory Rate 22 22 Blood Pressure [Le ft Arm] 128/71 Pulse Oximetry 93 93 Oxygen Delivery Me thod Nasal Cannula Nasal Cannula Oxygen Flow Rate 3 2 10/29/22 12:39 10/29/22 07:00 10/29/22 12:30 Temperature 98.9 F Pulse Rate 109 H Pulse Rate [Pulse Oximeter] 95 Respiratory Rate 18 16 Blood Pressure [Le ft Arm] 123/75 Pulse Oximetry 91 97 Oxygen Delivery Me thod Room Air Nasal Cannula Oxygen Flow Rate 2 10/29/22 12:30 Temperature 98.9 F Pulse Rate Pulse Rate [Pulse Oximeter] 91 Respiratory Rate 18 Blood Pressure [Le ft Arm] 123/75 Pulse Oximetry 94 Oxygen Delivery Me thod Nasal Cannula Oxygen Flow Rate 2 Labs Labs: Laboratory Results - last 24 hr 10/27/22 10/29/22 10/29/22 08:15 06:36 06:36 WBC 18.84 H RBC 3.41 L Hgb 9.8 L Hct 30.0 L MCV 88 MCH 29 MCHC 33 RDW Coeff of Bib 13.4 Plt Count 244 Neut % (Auto) 84.4 H Lymph % (Auto) 4.6 L [place] % (Auto) 9.8 Eos % (Auto) 0.2 Baso % (Auto) 0.1 Neut # (Auto) 15.90 H Lymph # (Auto) 0.90 [place] # (Auto) 1.80 H Eos # (Auto) 0.00 Baso # (Auto) 0.00 Sodium Potassium Chloride Carbon Dioxide BUN Creatinine Estimated Creat Clear Estimated GFR Glucose Calcium Ionized Calcium Rd 1.05 L C-Reactive Protein Procalcitonin Ur L.pneumophila Ag Negative Ur Strep pneumoniae Ag Negative 10/29/22 06:36 WBC RBC Hgb Hct MCV MCH MCHC RDW Coeff of Bib Plt Count Neut % (Auto) Lymph % (Auto) [place] % (Auto) Eos % (Auto) Baso % (Auto) Neut # (Auto) Lymph # (Auto) [place] # (Auto) Eos # (Auto) Baso # (Auto) Sodium 135 Potassium 3.6 Chloride 107 Carbon Dioxide 25 BUN 9 Creatinine 0.6 Estimated Creat Clear 92.69 Estimated GFR 116 Glucose 108 Calcium 7.[address] C-Reactive Protein 31.9 H Procalcitonin 14.00 H Ur L.pneumophila Ag Ur Strep pneumoniae Ag
--- NOTE | 2022-10-29 19:17 | PC.NURSE ---
Pt alert and oriented. C/o pain to R shoulder, chest and back from coughing. Continues using her Aerobika and IS at bedside. Was on 1L via NC much of the afternoon/evening but required back to 2L later this evening. PRN Tylenol, Tramadol, Atarax and cough syrup admin with positive result. IV saline locked in between IV abx admin. Pt had shower this AM, new linen and gown. Pt had a couple loose stools this shift, voiding without issues. Drinking adequate PO fluids, minimal food intake today. Pt has been up much of the shift, states she is very tired. Pt has call light within reach and uses appropriately.
[2022-10-29] MEDS: AZITHROMYCIN 250 MG TABLET 500 MG PO (20:48)
[2022-10-29] MEDS: CALCIUM CARBONATE 500 MG CHEW PO (20:48)
[2022-10-29] MEDS: ENOXAPARIN 30 MG/0.3ML INJ SUBCUT (20:49)
[2022-10-30] MEDS: KETOROLAC 15 MG/ML inj IVP (00:06)
[2022-10-30] MEDS: ONDANSETRON 2 MG/ML inj 4 MG IVP (00:06)
[2022-10-30 03:00] VITALS: BP 147/83; PULSE 93; RESP 20; TEMP 36.6; O2SAT 98
[2022-10-30] MEDS: PIPERACILLIN/TAZOBACTAM 3.375 GM in 0.9 % SODIUM CHLORIDE Mini-bag 100 ML IVPB ×4 (04:15→21:50)
[2022-10-30] MEDS: ACETAMINOPHEN 325 MG TABLET 650 MG PO ×3 (04:49→20:01)
[2022-10-30] MEDS: GABAPENTIN 100 MG CAPSULE 400 MG PO ×2 (04:49→12:30)
[2022-10-30 06:26] LABS: Ionized Calcium* 1.03 mmol/L (1.11-1.30)
[2022-10-30] MEDS: GUAIF/DM 200-20 MG/20 ML 118 ML LIQUID PO ×3 (06:26→21:51)
[2022-10-30 06:39] LABS: Hematocrit 29.4 % (33.0-51.0); Hemoglobin* 9.8 gm/dL (12.0-16.0); Lymphocytes Percent Auto 2.5 % (20-44); Mean Corpuscular HGB Conc 33 gm/dL (32-36); Mean Corpuscular Hemoglobin 29 pg (26-34); Mean Corpuscular Volume 88 fL (80-100); Monocytes Percent Auto 7.7 % (0.0-11.0); Neutrophils Percent Auto 88.8 % (42.0-72.0); Platelet Count* 276 K/uL (140-440); RDW Coefficient of Variation % 13.4 % (11.5-15.5); Red Blood Count 3.36 m/uL (4.00-5.20); White Blood Count* 23.56 K/uL (4.50-11.00)
[2022-10-30 06:45] LABS: Slide Review Reflex No
[2022-10-30 06:49] LABS: Chloride* 104 mmol/L (96-114); Potassium* 3.3 mmol/L (3.6-5.1); Sodium* 131 mmol/L (135-149)
[2022-10-30 06:52] LABS: Creatinine* 0.6 mg/dL (0.5-1.5); Est. Creatinine Clearance* 92.69; Estimated Glomerular Filt Rate 116 ml/min
[2022-10-30 06:53] LABS: Blood Urea Nitrogen* 9 mg/dL (5-24); Calcium* 7.3 mg/dL (8.4-10.6); Carbon Dioxide* 24 mmol/L (20-32); Glucose* 108 mg/dL (60-115)
[2022-10-30 07:00] VITALS: BP 129/80; PULSE 95; PULSE 98; RESP 40; TEMP 37.1; O2SAT 91
[2022-10-30 07:06] LABS: C Reactive Protein* 26.4 mg/dL (0.5-1.0)
--- NOTE | 2022-10-30 07:42 | PC.NURSE ---
Pt is alert and oriented x3. Pt reports SOB with exertion, and 7/10 pain in muscles surrounding ribs, pain managed with PRN medications. Pt has had intermittent dry cough, managed with PRN cough suppressant. Pt 02 sats were 90-92 in the eaving of 10/29/22 on 2L of oxygen but overnight the O2 sats dropped into low 80s (82-84%), pt's oxygen was turned up to 3L and pt returned to 90-91%. Pt posterior lung sounds have fine crackles and are diminished.? Pt reports feeling anxious and moans I want my mom, pt was given reassurance and tea per her request. Pt is up IND in room but puts personnel counselor light for assistance with IV pole. Pt is tolerating a regular diet. ? ?
[2022-10-30] MEDS: POTASSIUM BICARB 25 MEQ EFFERVESCENT TAB PO ×2 (07:52→09:37)
[2022-10-30] MEDS: 0.9 % SODIUM CHLORIDE 250 ml IV (07:56)
[2022-10-30] MEDS: SODIUM CHLORIDE 0.9 % (FLUSH) 10 ML SYRINGE 5 ML IVF ×4 (07:56→21:50)
[2022-10-30] MEDS: CALCIUM CARBONATE 500 MG CHEW PO ×2 (09:29→21:49)
--- NOTE | 2022-10-30 09:30 | CRLHL7_ITS ---
For Patients: As a result of the Century Cures Act, medical imaging exams and procedure reports are released immediately into your electronic medical record. You may view this report before your referring provider. If you have questions, please contact your health care provider. INDICATION: Pneumonia and pleural effusions. Increasing white blood cell count. TECHNIQUE: CT chest without contrast. COMPARISON: 10/27/2022. FINDINGS: Lungs and pleura: Interval worsening of large dense airspace infiltrate/consolidations with air bronchograms in all lobes. New small bilateral pleural effusions. No pneumothorax. Heart and vasculature: Heart size is normal. Thoracic aorta and pulmonary artery are normal in caliber. Lymph nodes/mediastinum: No mediastinal, hilar, or axillary adenopathy. Chest wall: No masses. Upper abdomen: No significant findings. Bones: Unremarkable for age. IMPRESSION: Definite interval worsening of severe bilateral multi lobar pneumonia with new small bilateral pleural effusions. Please note that all CT scans at this facility use dose modulation, iterative reconstruction, and/or weight-based dosing when appropriate to reduce radiation dose to as low as reasonably achievable. Dictated by Ki Doyle MD @ 10/30/2022 10:56:20 AM (Electronically Signed)
[2022-10-30 11:00] VITALS: BP 135/69; PULSE 97; RESP 36; TEMP 36.7; O2SAT 91
[2022-10-30 12:54] LABS: Procalcitonin* 8.68 ng/mL (<0.50)
--- NOTE | 2022-10-30 12:58 | RESP.RT ---
Pt seen, worked with margi. Pt does well with it. Cough productive for thick yellow/brown sputum, large amount. On 2L NC, SPO2 93% Desaturating into the mid 80's with coughing. Would get her in the chair for some time today. Asked Pt if she vapes and she denied doing that. Will talk to the provider about steroids. Follow Pt closely. If hse is having an issue with oxygenating, HFNC would be the next step.
[2022-10-30] MEDS: METHYLPREDNISOLONE SOD SUCC 62.5 MG/ML (125) IVP ×2 (13:56→21:50)
[2022-10-30 15:00] VITALS: BP 140/87; PULSE 94; PULSE 96; RESP 32; TEMP 36.6; O2SAT 90; O2SAT 91
--- NOTE | 2022-10-30 16:23 | P.IMPN_ITS ---
Progress Note: A&P Assessment and plan (1) Sepsis with acute hypoxic respiratory failure: Problem details: Slow improvement and WBC continues to rise. Repeat CT chest (above) shows definite worsening. I spoke with Dr. Clement from [facility] agreed with current antibiotic regimen of Zosyn, vanco, and azithromycin for atypical coverage. 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 I started that this morning. Status: Acute (2) Community acquired pneumonia: Problem details: Relatively severe multifocal pneumonia. SARs CoV 2 PCR is negative. HIV 1 and 2 are negative. Urine Legionella and strep pneumonia antigens are negative. Suspect MRSA pneumonia. As above. Status: Acute (3) Tobacco abuse: Status: Chronic (4) Malnutrition: Problem details: BMI of 17.5. Albumin of 3.0. Uncertain how much of this is acute and how much is chronic. Follow while hospitalized and then as outpatient Status: Acute (5) Methamphetamine abuse: Problem details: ECHO okay. starting solumedrol as above. Patient advised to stop all drug use and smoking. Status: Acute (6) Generalized anxiety disorder: Status: Chronic (7) Hypocalcemia: Problem details: Improving. Magnesium was within normal limits 10/27/22. Continue to replace calcium with IV calcium gluconate and oral calcium carbonate. Status: Acute Subjective Time Seen by Provider: 08:06 Date Seen: 10/30/22 Interval history: This morning I talked with Neelima about her urine being positive for methamphetamines and amphetamines. She said ?it's my boyfriend. ? After some silence I asked her to give me more information and she said that she saw bowl of white crystals that her boyfriend had and she tried it in a pipe to confirm that it was methamphetamine so that she could confront him about his use. This was a week ago. It was just before she started feeling ill. We talked about how it was still her choice to use methamphetamine and I expressed concern about potential for abuse and how this led to a serious illness for her and was likely to lead to further serious illnesses if she continued to use drugs. She demonstrated some understanding, but continued to blame her boyfriend rather than owning her own choices. She did not want me to tell her mom about her methamphetamine use. She said that she wanted to break-up with her boyfriend whom she has been dating for 14 years and living with for about that same amount of time. We talked about support that she might have such as AA meetings to help her as she is trying to abstain from drugs. I also spoke with our social workers to make them aware of the situation and asked them to meet with her to discuss treatment options. Neelima continues to have hypoxia especially with any small activity. She remains weak and it is difficult for her to do anything. The pain in her right chest is starting to feel better. Exam Narrative: Exam Narrative: General: No acute distress. Awake, alert, oriented. No pallor. No jaundice. Cardiovascular: Regular rate and rhythm. No murmurs, gallops, or rubs. Respiratory: Fine crackles throughout, unchanged. No wheezes Abdomen: Bowel sounds present. Soft, nondistended, nontender. Extremities: No pedal edema. Const: Vital Signs, click to edit/add: Vital Signs - 24 hr 10/29/22 18:55 10/29/22 19:54 10/29/22 23:00 Temperature 99.2 F Pulse Rate 89 Pulse Rate [Pulse Oximeter] 93 Respiratory Rate 18 Blood Pressure [Ri ght Arm] 144/79 H Pulse Oximetry 92 92 Oxygen Delivery Me thod Nasal Cannula Nasal Cannula Oxygen Flow Rate 2 2 10/29/22 23:00 10/29/22 23:00 10/29/22 23:00 Temperature 98.5 F Pulse Rate Pulse Rate [Pulse Oximeter] 94 Respiratory Rate 18 18 20 Blood Pressure [Ri ght Arm] 148/78 H Pulse Oximetry 92 93 Oxygen Delivery Me thod Nasal Cannula Nasal Cannula Oxygen Flow Rate 3 3 10/30/22 03:00 10/30/22 07:00 10/30/22 07:00 Temperature 97.9 F 98.8 F Pulse Rate Pulse Rate [Pulse Oximeter] 93 98 98 Respiratory Rate 20 40 H 40 H Blood Pressure [Ri ght Arm] 147/83 H 129/80 Pulse Oximetry 98 91 Oxygen Delivery Me thod Nasal Cannula Nasal Cannula Oxygen Flow Rate 2 1.5 10/30/22 07:00 10/30/22 11:00 10/30/22 07:00 Temperature 98.1 F Pulse Rate 95 Pulse Rate [Pulse Oximeter] 97 Respiratory Rate 40 H 36 H Blood Pressure [Ri ght Arm] 135/69 Pulse Oximetry 91 91 Oxygen Delivery Me thod Nasal Cannula Nasal Cannula Oxygen Flow Rate 1.5 1.5 10/30/22 15:00 Temperature 98 F Pulse Rate Pulse Rate [Pulse Oximeter] 96 Respiratory Rate 32 H Blood [facility] 140/87 H Pulse Oximetry 91 Oxygen Delivery Me thod Nasal Cannula Oxygen Flow Rate 1 Labs Labs: Laboratory Results - last 24 hr 10/30/22 10/30/22 10/30/22 06:13 06:13 06:13 WBC 23.56 H RBC 3.36 L Hgb 9.8 L Hct 29.4 L MCV 88 MCH 29 MCHC 33 RDW Coeff of Bib 13.4 Plt Count 276 Neut % (Auto) 88.8 H Lymph % (Auto) 2.5 L [place] % (Auto) 7.7 Eos % (Auto) 0.0 Baso % (Auto) 0.0 Neut # (Auto) 20.90 H Lymph # (Auto) 0.60 L [place] # (Auto) 1.80 H Eos # (Auto) 0.00 Baso # (Auto) 0.00 Sodium 131 L Potassium 3.3 L Chloride 104 Carbon Dioxide 24 BUN 9 Creatinine 0.6 Estimated Creat Clear 92.69 Estimated GFR 116 Glucose 108 Calcium 7.[address] 1.03 L C-Reactive Protein 26.4 H Procalcitonin 8.68 H
--- NOTE | 2022-10-30 18:46 | PC.NURSE ---
End of Shift: Patient pleasant and cooperative. Patient vitally stable, lungs course/diminished, BS WNL, IV intact. Patient on 1 L of oxygen NC with sats in the low 90's. Patient rates pain 6/10, tylenol and gabapentin given once. Patient independent in room, but does like help with cords. Patient tolerating regular diet and drinking fluids. Patient urinating and with loose stools x3. Patient has productive cough with yellow thick sputum, cough syrup given once. Mother and uncle visiting throughout day.
[2022-10-30 19:00] VITALS: BP 137/80; PULSE 98; RESP 20; TEMP 36.6; O2SAT 96
[2022-10-30] MEDS: ENOXAPARIN 30 MG/0.3ML INJ SUBCUT (21:49)
[2022-10-30] MEDS: AZITHROMYCIN 250 MG TABLET 500 MG PO (21:49)
[2022-10-30] MEDS: MELATONIN 3 MG TABLET PO (22:30)
[2022-10-30 23:00] VITALS: BP 122/71; PULSE 83; PULSE 84; RESP 22; TEMP 36.2; O2SAT 91
[2022-10-31] VITALS (9 sets, daily range): BP systolic 130–147; BP diastolic 77–87; PULSE 83–101; RESP 18–28; TEMP 36.7–37.3; O2SAT 90–94
[2022-10-31] MEDS: PIPERACILLIN/TAZOBACTAM 3.375 GM in 0.9 % SODIUM CHLORIDE Mini-bag 100 ML IVPB ×4 (04:08→22:00)
[2022-10-31] MEDS: SODIUM CHLORIDE 0.9 % (FLUSH) 10 ML SYRINGE 5 ML IVF ×3 (04:09→21:56)
--- NOTE | 2022-10-31 05:09 | PC.NURSE ---
End of Shift: Patient pleasant and cooperative. Afebrile. Rating pain in right chest with coughing up to 6/10 and PRN Tylenol and Robitussin given x1. 1L NC while awake to keep sats above 90% and 2L while asleep. O2 sats decreased to mid 80s on room air. Up independently in room. Tolerating regular diet with no nausea.
[2022-10-31 06:03] LABS: C.Difficile Negative (Negative); CDIFFEPI 027 PRESUMPTIVE NEGATIVE (Negative)
[2022-10-31 07:14] LABS: Basophils Percent Auto 0.1 % (0.0-3.0); Hematocrit 30.5 % (33.0-51.0); Immature Granulocytes Pct Auto 0.9 %; Lymphocytes Percent Auto 2.8 % (20-44); Mean Corpuscular HGB Conc 33 gm/dL (32-36); Mean Corpuscular Hemoglobin 29 pg (26-34); Mean Corpuscular Volume 88 fL (80-100); Monocytes Percent Auto 4.1 % (0.0-11.0); Neutrophils Percent Auto 92.1 % (42.0-72.0); Platelet Count* 343 K/uL (140-440); RDW Coefficient of Variation % 13.5 % (11.5-15.5); Red Blood Count 3.48 m/uL (4.00-5.20); White Blood Count* 20.77 K/uL (4.50-11.00)
[2022-10-31 07:16] LABS: Slide Review Reflex No
[2022-10-31 07:42] LABS: Albumin* 2.4 g/dL (3.3-5.0); Chloride* 104 mmol/L (96-114)
[2022-10-31 07:43] LABS: Potassium* 4.2 mmol/L (3.6-5.1); Sodium* 136 mmol/L (135-149)
[2022-10-31 07:45] LABS: Bilirubin Total* 0.4 mg/dL (0.1-1.5); Carbon Dioxide* 28 mmol/L (20-32); Cholesterol* 69 mg/dL (90-199); Creatinine* 0.8 mg/dL (0.5-1.5); Est. Creatinine Clearance* 69.51; Estimated Glomerular Filt Rate 95 ml/min; Total Protein* 5.4 g/dL (6.0-8.3)
[2022-10-31 07:46] LABS: Blood Urea Nitrogen* 13 mg/dL (5-24); Glucose* 181 mg/dL (60-115); INR 1.13 (0.91-1.10); Lactate Dehydrogenase* 201 U/L (120-246); Prothrombin Time 15.2 Seconds
[2022-10-31 08:02] LABS: Procalcitonin* 5.96 ng/mL (<0.50)
[2022-10-31] MEDS: METHYLPREDNISOLONE SOD SUCC 62.5 MG/ML (125) IVP ×2 (08:49→21:54)
[2022-10-31] MEDS: CALCIUM CARBONATE 500 MG CHEW PO ×3 (08:49→21:54)
[2022-10-31] MEDS: 0.9 % SODIUM CHLORIDE 250 ml IV (10:02)
[2022-10-31] MEDS: GUAIF/DM 200-20 MG/20 ML 118 ML LIQUID PO ×2 (10:02→21:52)
--- NOTE | 2022-10-31 11:15 | CRLHL7_ITS ---
For Patients: As a result of the Century Cures Act, medical imaging exams and procedure reports are released immediately into your electronic medical record. You may view this report before your referring provider. If you have questions, please contact your health care provider. Indication: Post thoracentesis Technique: Chest one view Comparison: 10/28/2022 Findings/Impression : Tiny right pleural effusion. No pneumothorax. Bilateral parenchymal opacities are similar. Dictated by Avelino Noland MD @ 10/31/2022 12:25:21 PM (Electronically Signed)
--- NOTE | 2022-10-31 11:30 | CRLHL7_ITS ---
For Patients: As a result of the Century Cures Act, medical imaging exams and procedure reports are released immediately into your electronic medical record. You may view this report before your referring provider. If you have questions, please contact your health care provider. INDICATION: Parapneumonic effusion TECHNIQUE: : Ultrasound guided right thoracentesis. FINDINGS/PROCEDURE: [place] protocol and Time Out procedure was performed completely prior to the procedure as is the standard protocol. [id number]-cause performed. Risks, benefits, and alternatives to the procedure including but not limited to the risk of bleeding, infection, injury to surrounding organs, and pneumothorax were explained in detail to the patient who understood and elected to proceed. Patient signed informed consent form. Using sterile technique, local anesthesia, and ultrasound guidance, a 5-[place] catheter was used to perform a right-sided thoracentesis. 25 cc of fluid was removed without complication. Remainder negative. IMPRESSION: Successful ultrasound-guided diagnostic right-sided thoracentesis with removal of 25 cc of fluid without complication. The fluid was sent to the lab for analysis. Dictated by Avelino Noland MD @ 10/31/2022 3:25:51 PM (Electronically Signed)
[2022-10-31 12:54] LABS: pH Body Fluid* 8.5
[2022-10-31 12:57] LABS: Mononuclear WBC Body Fluid* 39 %; Polynuclear WBC Body Fluid* 61 %; RBC, Body Fluid* 31000 Cells/uL; WBC, Body Fluid* 4828 Cells/uL
[2022-10-31 13:06] LABS: BF Clarity* Cloudy; BF Color Blood Tinged; BF Total Volume* 25; Glucose Body Fluid* 204 mg/dL
[2022-10-31 13:07] LABS: Albumin Body Fluid* < 1.0 gm/dL
[2022-10-31 13:09] LABS: Body Fluid Total Protein* 2.2 gm/dL
[2022-10-31 13:10] LABS: Amylase Body Fluid* < 30 U/L
[2022-10-31 13:34] LABS: Cholesterol Body Fluid* < 50 mg/dL; LDH Body Fluid* 2669 U/L
--- NOTE | 2022-10-31 14:18 | PM.IMPN1 ---
Progress Note: A&P Assessment and plan (1) Sepsis with acute hypoxic respiratory failure: Problem details: - Repeat CT chest on 10/30 showed definite worsening. I spoke with Dr. Clement from [place] [facility] 10/30, who agreed with current antibiotic regimen of Zosyn, vanco, and azithromycin for atypical coverage. 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 - 10/31 WBC stable. Procal continues to trend downward, but it still elevated. Pleural effusion fluid was sent to lab. Appears to be more consistent with parapneumonic effusion rather than empyema. No organisms seen on Gram stain. Culture pending. Continue current antibiotics. Continue to check daily procal. Consider de-escalating antibiotics over the next few days. Status: Acute (2) Community acquired pneumonia: Problem details: Relatively severe multifocal pneumonia. SARs CoV 2 PCR is negative. HIV 1 and 2 are negative. Urine Legionella and strep pneumonia antigens are negative. Suspect MRSA pneumonia. As above. Status: Acute (3) Tobacco abuse: Status: Chronic (4) Malnutrition: Problem details: BMI of 17.5. Albumin of 3.0. Uncertain how much of this is acute and how much is chronic. Follow while hospitalized and then as outpatient Status: Acute (5) Methamphetamine abuse: Problem details: ECHO okay. starting solumedrol as above. Patient advised to stop all drug use and smoking. - Currently on Solu-Medrol 62.5 mg IV twice a day for presumed inflammatory lung from smoking methamphetamine. Status: Acute (6) Generalized anxiety disorder: Status: Chronic (7) Hypocalcemia: Problem details: Stable. Magnesium was within normal limits 10/27/22. Continue to replace calcium with IV calcium gluconate and oral calcium carbonate. Increased oral calcium carbonate today 10/31. Status: Acute Subjective Time Seen by Provider: 09:07 Date Seen: 10/31/22 Interval history: Neelima is feeling better today. She is feeling well enough that she is excited to take a shower later today and do her hair. She is less short of breath with activity. Neelima told me this morning that she has actually been using methamphetamine for several months. She has told her mom about her use and desire to break up with her boyfriend. Her mom was supportive of this decision, although surprised, and will let Neelima move in with her upon discharge from the hospital. She got a thoracentesis today by Interventional Radiology. Exam Narrative: Exam Narrative: General: No acute distress. Awake, alert, oriented. No pallor. No jaundice. Cardiovascular: Regular rate and rhythm. No murmurs, gallops, or rubs. Respiratory: Fine crackles throughout, unchanged. No wheezes Abdomen: Bowel sounds present. Soft, nondistended, nontender. Extremities: No pedal edema. Const: Vital Signs, click to edit/add: Vital Signs - 24 hr 10/30/22 15:00 10/30/22 15:00 10/30/22 15:00 Temperature 98 F Pulse Rate Pulse Rate [Pulse Oximeter] 96 96 Respiratory Rate 32 H 32 H 32 H Blood Pressure [Ri ght Arm] 140/87 H Pulse Oximetry 91 90 Oxygen Delivery Me thod Nasal Cannula Nasal Cannula Oxygen Flow Rate 1 0.5 10/30/22 15:00 10/30/22 19:00 10/30/22 23:00 Temperature 97.9 F 97.1 F L Pulse Rate 94 Pulse Rate [Pulse Oximeter] 98 84 Respiratory Rate 20 22 Blood Pressure [Ri ght Arm] 137/80 122/71 Pulse Oximetry 96 91 Oxygen Delivery Me thod Nasal Cannula Nasal Cannula Oxygen Flow Rate 1 1 10/30/22 23:00 10/30/22 23:00 10/30/22 23:00 Temperature Pulse Rate 83 Pulse Rate [Pulse Oximeter] 84 Respiratory Rate 22 Blood Pressure [Ri ght Arm] Pulse Oximetry 91 Oxygen Delivery Me thod Nasal Cannula Oxygen Flow Rate 1 10/31/22 03:00 10/31/22 07:29 10/31/22 07:00 Temperature 98.1 F Pulse Rate 101 H Pulse Rate [Pulse Oximeter] 83 Respiratory Rate 28 H 22 Blood Pressure [Ri ght Arm] 147/87 H Pulse Oximetry 93 91 Oxygen Delivery Me thod Nasal Cannula Nasal Cannula Oxygen Flow Rate 2 2 10/31/22 07:00 10/31/22 07:00 10/31/22 07:00 Temperature 99.1 F Pulse Rate Pulse Rate [Pulse Oximeter] 86 86 Respiratory Rate 22 22 22 Blood Pressure [Ri ght Arm] 137/80 Pulse Oximetry 91 91 Oxygen Delivery Me thod Nasal Cannula Nasal Cannula Oxygen Flow Rate 2 2 10/31/22 12:09 10/31/22 11:00 Temperature 99.2 F Pulse Rate Pulse Rate [Pulse Oximeter] 85 85 Respiratory Rate 20 20 Blood Pressure [[facility]] 130/77 141/81 H Pulse Oximetry 91 94 Oxygen Delivery Me thod Nasal Cannula Nasal Cannula Oxygen Flow Rate 2 2 Labs Labs: Laboratory Results - last 24 hr 10/31/22 10/31/22 10/31/22 04:35 06:25 06:25 WBC 20.77 H RBC 3.48 L Hgb 10.0 L Hct 30.5 L MCV 88 MCH 29 MCHC 33 RDW Coeff of Bib 13.5 Plt Count 343 Neut % (Auto) 92.1 H Lymph % (Auto) 2.8 L [place] % (Auto) 4.1 Eos % (Auto) 0.0 Baso % (Auto) 0.1 Neut # (Auto) 19.10 H Lymph # (Auto) 0.60 L [place] # (Auto) 0.90 Eos # (Auto) 0.00 Baso # (Auto) 0.00 INR Sodium 136 Potassium 4.2 Chloride 104 Carbon Dioxide 28 BUN 13 Creatinine 0.8 Estimated Creat Clear 69.51 Estimated GFR 95 Glucose 181 H Calcium 8.0 L Total Bilirubin 0.4 Lactate Dehydrogenase 201 Total Protein 5.4 L Albumin 2.4 L Cholesterol 69 L Procalcitonin 5.96 H Fluid Volume Fluid Color Fluid Appearance Fluid pH Fluid WBC Fluid RBC Fluid Polynuclear WBCs Fluid Mononuclear WBCs Fluid Glucose Fluid Total Protein Fluid Albumin Fluid LDH Fluid Amylase Fluid Cholesterol Stl C.difficile Tox PCR Negative St C. diff Tox Epid 027 PRESUMPTIVE NEGATIVE 10/31/22 10/31/22 06:25 11:37 WBC RBC Hgb Hct MCV MCH MCHC RDW Coeff of Bib Plt Count Neut % (Auto) Lymph % (Auto) [place] % (Auto) Eos % (Auto) Baso % (Auto) Neut # (Auto) Lymph # (Auto) [place] # (Auto) Eos # (Auto) Baso # (Auto) INR 1.13 H Sodium Potassium Chloride Carbon Dioxide BUN Creatinine Estimated Creat Clear Estimated GFR Glucose Calcium Total Bilirubin Lactate Dehydrogenase Total Protein Albumin Cholesterol Procalcitonin Fluid Volume 25 Fluid Color Blood Tinged A Fluid Appearance Cloudy A Fluid pH 8.5 Fluid WBC 4828 Fluid RBC 30696 Fluid Polynuclear WBCs 61 Fluid Mononuclear WBCs 39 Fluid Glucose 204 Fluid Total Protein 2.2 Fluid Albumin < 1.0 Fluid LDH 2669 Fluid Amylase < 30 Fluid Cholesterol < 50 Stl C.difficile Tox PCR St C. diff Tox Epid 027
[2022-10-31 15:02] LABS: Bilirubin Total* 0.7 mg/dL (0.1-1.5)
--- NOTE | 2022-10-31 19:54 | PC.NURSE ---
End of Shift: Pt has been very pleasant and cooperative. . pt has pain in right chest with coughing up to 3 /10 Robitussin given x2 she did not want any pain meds so far. 02 is 1-2 L took off @ 1400 and sao2 are 89-91 on RA. we are doing TCDB IS and Aerobika and yoga breathing Up independently in room. Tolerating regular diet with no nausea. she is eating, drinking and voiding, MRSA precautions she said she feels better and slept well. cont sao2 in on and tele was d/c she is going to take a shower. she had a thoracentesis today dressing is C/D/I.
[2022-10-31] MEDS: ENOXAPARIN 30 MG/0.3ML INJ SUBCUT (21:53)
[2022-10-31] MEDS: AZITHROMYCIN 250 MG TABLET 500 MG PO (21:53)
[2022-11-01] VITALS (7 sets, daily range): BP systolic 131–155; BP diastolic 65–88; PULSE 68–91; RESP 16–18; TEMP 36.7–37.1; O2SAT 86–96
[2022-11-01] MEDS: GUAIF/DM 200-20 MG/20 ML 118 ML LIQUID PO ×2 (02:37→09:50)
[2022-11-01] MEDS: PIPERACILLIN/TAZOBACTAM 3.375 GM in 0.9 % SODIUM CHLORIDE Mini-bag 100 ML IVPB ×2 (04:15→09:51)
[2022-11-01 06:29] LABS: Ionized Calcium* 1.15 mmol/L (1.11-1.30)
[2022-11-01 06:30] LABS: Basophils Percent Auto 0.1 % (0.0-3.0); Hematocrit 29.6 % (33.0-51.0); Hemoglobin* 9.5 gm/dL (12.0-16.0); Immature Granulocytes Pct Auto 1.6 %; Lymphocytes Percent Auto 3.1 % (20-44); Mean Corpuscular HGB Conc 32 gm/dL (32-36); Mean Corpuscular Hemoglobin 29 pg (26-34); Mean Corpuscular Volume 90 fL (80-100); Monocytes Percent Auto 5.7 % (0.0-11.0); Neutrophils Percent Auto 89.5 % (42.0-72.0); Platelet Count* 472 K/uL (140-440); RDW Coefficient of Variation % 13.5 % (11.5-15.5); White Blood Count* 19.18 K/uL (4.50-11.00)
[2022-11-01 06:39] LABS: Slide Review Reflex No
[2022-11-01 06:55] LABS: Chloride* 104 mmol/L (96-114); Sodium* 135 mmol/L (135-149)
[2022-11-01 06:56] LABS: Potassium* 4.2 mmol/L (3.6-5.1)
[2022-11-01 06:58] LABS: Creatinine* 0.8 mg/dL (0.5-1.5); Est. Creatinine Clearance* 69.51; Estimated Glomerular Filt Rate 95 ml/min
[2022-11-01 06:59] LABS: Blood Urea Nitrogen* 15 mg/dL (5-24); Carbon Dioxide* 26 mmol/L (20-32); Glucose* 133 mg/dL (60-115)
[2022-11-01 07:10] LABS: Procalcitonin* 3.58 ng/mL (<0.50)
--- NOTE | 2022-11-01 08:00 | PC.NURSE ---
Pt alert and oriented x3. Pt reports coughing fits, managed with PRN medications. Pts lungs sounds are slightly diminished with some fine crackles in bases. Pt is up IND in room but SBA when attached to IV pole, pt asks staff for assistance with IV pole to bathroom. Pt is tolerating regular diet. Pt slept intermittently throughout night but had difficulties due to coughing fits throughout night.
[2022-11-01] MEDS: SODIUM CHLORIDE 0.9 % (FLUSH) 10 ML SYRINGE 5 ML IVF ×3 (09:00→21:31)
[2022-11-01] MEDS: ACETAMINOPHEN 325 MG TABLET 650 MG PO ×2 (09:46→20:46)
[2022-11-01] MEDS: METHYLPREDNISOLONE SOD SUCC 62.5 MG/ML (125) IVP ×2 (09:49→20:12)
[2022-11-01] MEDS: CALCIUM CARBONATE 500 MG CHEW PO ×4 (09:50→20:12)
[2022-11-01] MEDS: 0.9 % SODIUM CHLORIDE 250 ml IV (09:52)
--- NOTE | 2022-11-01 10:52 | CRLHL7_ITS ---
For Patients: As a result of the Century Cures Act, medical imaging exams and procedure reports are released immediately into your electronic medical record. You may view this report before your referring provider. If you have questions, please contact your health care provider. Indication: Pneumonia. Technique: Chest 1 view. Comparison: 10/31/2022. Findings/Impression: Cardiovascular and mediastinum: Heart size remains normal. Lungs and pleural space: Pneumonia in the right lower lobe appears to have worsened. Pneumonia in the remainder of both lungs is similar to yesterday`s exam. No significant effusion and no pneumothorax. Bones and soft tissues: No acute findings. Dictated by Ki Doyle MD @ 11/01/2022 11:22:13 AM (Electronically Signed)
[2022-11-01 14:59] LABS: HCG Qualitative Serum* Negative (Negative)
--- NOTE | 2022-11-01 15:29 | PM.IMPN1 ---
Progress Note: A&P Assessment and plan (1) Acute respiratory failure with hypoxia: Problem details: Related to MRSA pneumonia and pleural fluid/empyema (nasal swab, sputum, pleural fluid all growing MRSA). Remains on 2 L per nasal cannula oxygen. No respiratory distress. Spoke [facility] Dr. Cabrera, pulmonary at [place], who had heard about this case from my partner Dr. Dennis earlier in the week. He recommended continuing current cares and that these type of infections need IV vancomycin for several days sometimes up to 10 days. Clinically she is improving and her inflammatory markers are down trending. Continue with the IV Solu-Medrol and IV vanc. Will stop the azithromycin and Zosyn. Status: Acute (2) Methamphetamine abuse: Problem details: ECHO okay. starting solumedrol as above. Patient advised to stop all drug use and smoking. - Currently on Solu-Medrol 62.5 mg IV twice a day for presumed inflammatory lung from smoking methamphetamine. Status: Acute (3) Community acquired pneumonia: Problem details: Relatively severe multifocal pneumonia. SARs CoV 2 PCR is negative. HIV 1 and 2 are negative. Urine Legionella and strep pneumonia antigens are negative. Suspect MRSA pneumonia. As above. Status: Acute (4) Malnutrition: Problem details: BMI of 17.5. Albumin of 3.0. Uncertain how much of this is acute and how much is chronic. Follow while hospitalized and then as outpatient Status: Acute (5) Generalized anxiety disorder: Status: Chronic (6) Tobacco abuse: Status: Chronic Subjective Date Seen: 11/01/22 Interval history: Daily Progress Note - Hospital Medicine Day #: 5 CC: Acute hypoxic respiratory failure secondary to multifocal multilobar pneumonia, MRSA in the setting of chronic methamphetamine use. OVERNIGHT UPDATES FROM STAFF & MED, LAB, IMAGING UPDATES -clinically stable. Patient remains on 2 L per nasal cannula. She is independent with her cares. Lacks insight somewhat. -continues on broad-spectrum IV antibiotics 144/81 Pulse 70 Resp is 18 Temp 98? O2 sat 96% on 2 L CBC reflects a down trending, slowly white blood cell count. Today's 19.18, peaked at 23.5 Hemoglobin is stable Platelets are reactive at 472 Procalcitonin has down trended nicely 25.5 down to 3.58 today Reviewed her pleural fluid, growing MRSA Sputum growing MRSA Nasal swab positive for MRSA Blood cultures, drawn after antibiotics, remain negative Reviewed and was normal on 10/29/2022 Objective: Awake, alert. Cooperative. Vitals: see above Lungs: Rhonchi bilaterally, no significant respiratory distress Cardiac: S1S2. Disposition/Potential discharge - Likely discharge with her mom to home Total time is 35 minutes with greater than 50% spent in counseling and coordination of care. Exam Const: Vital Signs, click to edit/add: Vital Signs - 24 hr 10/31/22 19:00 10/31/22 23:00 10/31/22 23:00 Temperature 98.4 F Pulse Rate [Pulse Oximeter] 85 Respiratory Rate 18 18 18 Blood Pressure [Ri ght Arm] 140/85 H Pulse Oximetry 92 93 Oxygen Delivery Me thod Nasal Cannula Nasal Cannula Oxygen Flow Rate 2 2 Fraction of Inspir ed Oxygen 10/31/22 23:00 11/01/22 03:00 11/01/22 07:00 Temperature 98.1 F 98.3 F 98.8 F Pulse Rate [Pulse Oximeter] 87 86 87 Respiratory Rate 18 16 18 Blood Pressure [Ri ght Arm] 145/82 H 148/84 H 131/72 Pulse Oximetry 90 86 L 93 Oxygen Delivery Me thod Nasal Cannula Nasal Cannula Nasal Cannula Oxygen Flow Rate 2 2 2 Fraction of Inspir ed Oxygen 11/01/22 11:00 11/01/22 07:00 11/01/22 07:00 Temperature 98.0 F Pulse Rate [Pulse Oximeter] 70 70 Respiratory Rate 18 18 18 Blood Pressure [Ri ght Arm] 144/81 H Pulse Oximetry 96 96 Oxygen Delivery Me thod Nasal Cannula Nasal Cannula Oxygen Flow Rate 2 2 Fraction of Inspir ed Oxygen 11/01/22 15:00 11/01/22 15:00 11/01/22 15:00 Temperature Pulse Rate [Pulse Oximeter] 70 Respiratory Rate 18 18 Blood Pressure [Ri ght Arm] Pulse Oximetry 96 Oxygen Delivery Me thod Nasal Cannula Nasal Cannula Oxygen Flow Rate 2 Fraction of Inspir ed Oxygen 0.44 Labs Labs: Laboratory Results - last 24 hr 11/01/22 11/01/22 11/01/22 06:08 06:08 06:08 WBC 19.18 H RBC 3.30 L Hgb 9.5 L Hct 29.6 L MCV 90 MCH 29 MCHC 32 RDW Coeff of Bib 13.5 Plt Count 472 H Neut % (Auto) 89.5 H Lymph % (Auto) 3.1 L [place] % (Auto) 5.7 Eos % (Auto) 0.0 Baso % (Auto) 0.1 Neut # (Auto) 17.20 H Lymph # (Auto) 0.60 L [place] # (Auto) 1.10 H Eos # (Auto) 0.00 Baso # (Auto) 0.00 Sodium 135 Potassium 4.2 Chloride 104 Carbon Dioxide 26 BUN 15 Creatinine 0.8 Estimated Creat Clear 69.51 Estimated GFR 95 Glucose 133 H Calcium 8.[address] 1.15 Procalcitonin 3.58 H HCG, Qual 11/01/22 06:08 WBC RBC Hgb Hct MCV MCH MCHC RDW Coeff of Bib Plt Count Neut % (Auto) Lymph % (Auto) [place] % (Auto) Eos % (Auto) Baso % (Auto) Neut # (Auto) Lymph # (Auto) [place] # (Auto) Eos # (Auto) Baso # (Auto) Sodium Potassium Chloride Carbon Dioxide BUN Creatinine Estimated Creat Clear Estimated GFR Glucose Calcium Ionized Calcium Rd Procalcitonin HCG, Qual Negative
[2022-11-01 18:41] LABS: C.Difficile Negative (Negative); CDIFFEPI 027 PRESUMPTIVE NEGATIVE (Negative)
--- NOTE | 2022-11-01 19:03 | PC.NURSE ---
Patient had with positive attitude today. Patient breathing improved and was be on room air most of afternoon. Patient with pain relief from tylenol. Patient with independent in room. Patient had CTA performed today. Patient mother at bedside majority of afternoon. Patient VSS. Patient pleasant with staff. Patient had good appetite. Patient had CDIFF sample sent d/t loose stools and awaiting results.
[2022-11-01] MEDS: ENOXAPARIN 30 MG/0.3ML INJ SUBCUT (20:13)
[2022-11-01] MEDS: IPRAT-ALBUT 0.5-2.5 MG/3 ML NEB 1 NEB IH (20:45)
[2022-11-01] MEDS: FUROSEMIDE 10 MG/ML inj 20 MG IVP (21:30)
[2022-11-01] MEDS: POTASSIUM CHLORIDE 10 MEQ CAPSULE ER 20 MEQ PO (21:30)
[2022-11-01] MEDS: BENZOCAINE/MENTHOL 1 EACH LOZENGE MUCOUS MEM (21:31)
[2022-11-02] VITALS (7 sets, daily range): BP systolic 132–145; BP diastolic 74–87; PULSE 68–76; RESP 14–24; TEMP 36.1–36.8; O2SAT 88–96
[2022-11-02] MEDS: IPRAT-ALBUT 0.5-2.5 MG/3 ML NEB 1 NEB IH ×2 (05:32→09:44)
[2022-11-02] MEDS: BENZOCAINE/MENTHOL 1 EACH LOZENGE MUCOUS MEM (05:36)
[2022-11-02] MEDS: ACETAMINOPHEN 325 MG TABLET 650 MG PO (05:50)
--- NOTE | 2022-11-02 06:28 | PC.NURSE ---
: pleasant and cooperative. Mother at bedside for the evening. Ronnie pts boyfriend brought in food & was at bedside throughout the night. Pt c/o pain in her right chest with coughing, Tylenol given. pt woke and stated she had a headache, tylenol given again. Pt states she is occasionally coughing up thick yellow sputum. Rhonchi auscultated in posterior lung landers, PRN Neb provided x2, encouraging deep breathing exercises with IS and aerobika. Throat lozenges provided for throat/chest discomfort, offered relief.?Pt c/o feeling ?puffy? and ?swollen? at beginning of shift. Slight leg edema noted, admin wt 10/27 47.5kg, 11/01 wt 55.9kg. Provider notified, 20mg lasix ordered and given along with K+. 11/02 am wt 54.4kg.?Pt stated she was peeing a lot and had to dump the hat in BR 2x, mentioned to pt to call so verse writer can document output, pt continued to empty hat herself. Pt currently menstruating, pads provided.
[2022-11-02 06:31] LABS: Ionized Calcium* 1.14 mmol/L (1.11-1.30)
[2022-11-02 06:38] LABS: Basophils Percent Auto 0.1 % (0.0-3.0); Hematocrit 31.2 % (33.0-51.0); Hemoglobin* 10.1 gm/dL (12.0-16.0); Immature Granulocytes Pct Auto 0.7 %; Lymphocytes Percent Auto 3.5 % (20-44); Mean Corpuscular HGB Conc 32 gm/dL (32-36); Mean Corpuscular Hemoglobin 29 pg (26-34); Mean Corpuscular Volume 89 fL (80-100); Monocytes Percent Auto 8.4 % (0.0-11.0); Neutrophils Percent Auto 87.3 % (42.0-72.0); Platelet Count* 607 K/uL (140-440); RDW Coefficient of Variation % 13.3 % (11.5-15.5); Red Blood Count 3.49 m/uL (4.00-5.20)
[2022-11-02 06:51] LABS: Albumin* 2.9 g/dL (3.3-5.0); Chloride* 101 mmol/L (96-114); Slide Review Reflex No; Sodium* 134 mmol/L (135-149)
[2022-11-02 06:52] LABS: Potassium* 4.3 mmol/L (3.6-5.1)
[2022-11-02 06:53] LABS: Creatinine* 0.8 mg/dL (0.5-1.5); Est. Creatinine Clearance* 79.52; Estimated Glomerular Filt Rate 95 ml/min
[2022-11-02 06:54] LABS: Alanine Aminotransferase* 96 U/L (4-35); Alkaline Phosphatase* 137 U/L (40-150); Aspartate Amino Transferase* 63 U/L (12-35); Bilirubin Total* 0.4 mg/dL (0.1-1.5); Blood Urea Nitrogen* 15 mg/dL (5-24); Carbon Dioxide* 29 mmol/L (20-32); Glucose* 144 mg/dL (60-115)
[2022-11-02 06:55] LABS: Calcium* 8.2 mg/dL (8.4-10.6); Magnesium* 2.1 mg/dL (1.5-2.6)
[2022-11-02 06:57] LABS: C Reactive Protein* 5.2 mg/dL (0.5-1.0)
[2022-11-02 07:11] LABS: Procalcitonin* 2.09 ng/mL (<0.50)
[2022-11-02] MEDS: METHYLPREDNISOLONE SOD SUCC 62.5 MG/ML (125) IVP (09:44)
[2022-11-02] MEDS: CALCIUM CARBONATE 500 MG CHEW PO ×2 (09:44→13:30)
[2022-11-02] MEDS: SODIUM CHLORIDE 0.9 % (FLUSH) 10 ML SYRINGE 5 ML IVF (09:45)
--- NOTE | 2022-11-02 09:49 | CRLHL7_ITS ---
For Patients: As a result of the Cures Act, medical imaging exams and procedure reports are released immediately into your electronic medical record. You may view this report before your referring provider. If you have questions, please contact your health care provider. INDICATION: Long-term antibiotics, PICC line TECHNIQUE: Chest 1 view. COMPARISON: 10/27/2022 FINDINGS: Cardiovascular and mediastinum: Heart size and vasculature are normal in caliber and appearance. Mediastinum is within normal limits. Right-sided PICC line tip in the distal SVC. Lungs and pleural space: Stable lateral pulmonary infiltrates. No sign of pleural effusion. No pneumothorax. Bones and soft tissues: No significant findings. IMPRESSION: Right-sided PICC line tip in the distal SVC. Dictated by Avelino Vallejo MD @ 11/02/2022 4:35:03 PM Dictated by: Avelino Vallejo MD @ 11/02/2022 16:35:10 (Electronically Signed)
--- NOTE | 2022-11-02 12:59 | ONC.NURNOTE ---
alert and oriented. vs wnl. sats awake at rest 96 ra. sats with activity 92 ra. resp 16-18. See RT note. pt awaiting Picc line placement between 3 and 4pm today, then will be placed discharged and returning daily 8am and 8pm for iv vanco. pt did have a episode this am with some crying while talking. expressing her feelings of frustration with not being able to work. use active listening with eye contact to let her vent.
--- NOTE | 2022-11-02 14:40 | PM.DS1 ---
DS: Providers Provider Date Seen: 11/02/22 Date of admission: 10/27/22 06:15 Primary care physician: Lorenza Soni MD Admitting Clinician: Thierry Castro MD Consults: 10/27/22 20:41 Consult to Nutrition [CONS] Routine Comment: Reason for consult:: Weight Loss Attending Physician on discharge[facility] Date of Discharge: 11/02/22 DS: Diagnosis Discharge Diagnosis (1) Community acquired pneumonia: Status: Acute Problem details: Relatively severe multifocal pneumonia that required 1-3 L per nasal cannula oxygen. Status post thoracentesis, 20 mL removed. Culture grew MRSA. Sputum culture MRSA positive. Nasal swab positive MRSA. SARs CoV 2 PCR is negative. HIV 1 and 2 are negative. Urine Legionella and strep pneumonia antigens are negative. -initially admitted on azithromycin and Rocephin. This was expanded to Zosyn and vancomycin on 10/28/2022. On 11/01/2022 I discontinued both azithromycin and Zosyn. -complicated by tobacco use, likely chemical pneumonitis from methamphetamine abuse, malnutrition and poor insight -early in her hospital course this was complicated by relatively severe hyponatremia, 122, hypocalcemia. (2) Malnutrition: Status: Acute Problem details: BMI of 17.5. Albumin of 3.0. Secondary likely to methamphetamine abuse (3) Methamphetamine abuse: Status: Acute Problem details: Echo within normal limits. Pulmonary Medicine recommended IV Solu-Medrol b.i.d. in addition to broad-spectrum antibiotics for the chemical pneumonitis part of this picture. She is being discharged on an oral prednisone taper and will continue to get IV antibiotics. Abstinence recommended. (4) Generalized anxiety disorder: Status: Chronic Problem details: Her anxiety increased throughout her stay culminating in a and against medical advice discharge on 11/02/2022 (5) Tobacco abuse: Status: Chronic Problem details: Likely complicating both a chemical pneumonitis and pneumonia. Abstinence recommended. DS: Summary Hospital Course Hospital Course: HOSPITALIST DISCHARGE SUMMARY ATTENDING PHYSICIAN: Georgina Liao MD FINAL DIAGNOSIS: MRSA multifocal pneumonia with empyema, hypoxia Methamphetamine abuse Tobacco dependence Malnutrition Chronic anxiety HOSPITAL FOLLOWUP ISSUES: 1. PICC line placed 11/02/2022, continue IV vancomycin, 1 g Q 12, with the endpoint of at least 10, possibly 14 days of IV antibiotics. Start date 10/28/22. End day 314? 18? Oral transition? 2. Pulmonary Medicine follow-up scheduled for the week of November with [facility] 3. Infectious disease, [facility], consult faxed on 11/02/2022. They will contact the patient for follow-up. 4. Substance abuse, follow-up on abstinence REFERRALS WHILE ADMITTED: Telephone consult with Pulmonary Medicine, Dr. Cabrera, [facility] Respiratory therapy REFERRALS AFTER DISCHARGE: PCP Infectious disease Pulmonary medicine BRIEF HOSPITAL COURSE: Neelima is a 42-year-old who presented with hypoxia, fever tachycardia. She was diagnosed with a multifocal pneumonia. In addition had hyponatriemia to 122. This was subsequently diagnosed as MRSA community-acquired pneumonia. She had a thoracentesis on 10/31/22. Her sputum, nasal swab and pleural fluid grew MRSA. She initially was on standard CAP antibiotics, rocephin and azithromycin. This was broadened to Zosyn and Vanc and azithromycin with ongoing hypoxia and radiological evidence of progression. Drug screen was positive for meth. She smokes both meth and tobacco daily. She is malnurished. We discussed the case with Dr. Cabrera, pulmonary medicine @ [facility], and he recommended starting IV solumedrol for a likely chemical pneumonitis from the meth and extend her IV Vanc for a total of 10-14 days. Ultimately by 11/02/22 her anxiety was growing being in the hospital and she planned to leave against my recommendations. We compromised with a PICC line placement, outpatient IV antibiotics, oral prednisone and f/u with PCP, Pulmonary, ID consults. SUBSTANTIVE NOTATIONS ON IMAGING, LAB, MICROBIOLOGY/PATHOLOGY STUDIES: 10/27/2022 - initial chest CT Large dense bilateral air space infiltrates in both upper lobes and both lower lobes. No suspicious nodule. No pleural effusions, pleural thickening, or pneumothorax. No PE 10/30/[address] Definite interval worsening of severe bilateral multi lobar pneumonia with new small bilateral pleural effusions. 10/31/2022 Thoracentesis 20 mL of bloody fluid Pleural fluid shows pH of 8.5, 4800 WBCs: 61 polys, 31K RBCS, Glucose 204, 2.2 total protein Less than 1 albumin LDH 2669 11/01/[address] 1. No evidence of pulmonary embolus. 2. Extensive areas of consolidation throughout both lungs consistent with a multi lobar pneumonia. Compared to the prior examination, areas of consolidation are slightly decreased although note is made of some increasing lucencies within the areas of consolidation consistent with a cavitary/necrotizing pneumonia. 3. Small bilateral pleural effusions with some loculation of the right pleural effusion within the major fissure. CBC is down trending 23.5 down to 17.3, 87% neutrophils Hemoglobin stable 10.1 Platelets reactive up to 607 climbing at discharge INR 1.13 Electrolytes stable, renal function stable LFTs trending up at discharge CRP is nicely down trending. Max 35.9 down to 5.2 Procalcitonin 25.5 initially down to 2.09 Blood cultures negative at 96 hours. Pending labs include acid-fast bacilli and fungal culture Echocardiogram was reassuring. Transthoracic.. DISCHARGE MEDICATIONS: See Reconciled list - SIGNIFICANT CHANGES: Prednisone taper Continue gabapentin IV Vanc vs PICC PHYSICAL EXAM: CONSTITUTIONAL: anxious, coughing. VITAL SIGNS: see record. HEENT: Normocephalic, atraumatic. PERRL, EOMI, conjunctivae pink, no scleral icterus. Ears and nose externally normal. Pharynx normal. NECK: No JVD. No carotid bruit, no thyromegaly, no adenopathy. CHEST: Rhonci bilaterally HEART: S1 and S2 normal. Edema minimal. ABDOMEN: Soft, nontender. Normal bowel sounds. MUSCULOSKELETAL: No gross joint deformity or swelling. NEURO: Cranial nerves intact. Grossly intact. No asymmetric findings. SKIN: No rashes, petechiae, concerning changes PSYCHIATRIC: Mood pressured, anxious. DISPOSITION: Home with mother Time spent on discharge 37 minutes. Time spent discussing smoking cessation with patient: more than 10 minutes Status at Discharge Functional status at discharge: independent ambulation Overall status at discharge: patient is progressing back to baseline Time Spent with Patient Time attestation: Total time spent providing and/or coordinating discharge services: Time spent: Greater than 30 minutes Exam Const: Vital Signs, click to edit/add: Vital Signs - 24 hr 11/01/22 15:00 11/01/22 15:00 11/01/22 15:00 Temperature 98.0 F Pulse Rate [Pulse Oximeter] 70 68 Respiratory Rate 18 18 18 Blood Pressure [Le ft Arm] Blood Pressure [Ri ght Arm] 144/65 H Pulse Oximetry 96 94 Oxygen Delivery Me thod Nasal Cannula Room Air Oxygen Flow Rate 2 Fraction of Inspir ed Oxygen 11/01/22 19:00 11/01/22 22:57 11/01/22 22:57 Temperature 98.7 F Pulse Rate [Pulse Oximeter] 78 Respiratory Rate 18 18 18 Blood Pressure [Le ft Arm] Blood Pressure [Ri ght Arm] 149/88 H Pulse Oximetry 92 92 Oxygen Delivery Me thod Room Air Room Air Oxygen Flow Rate 2 Fraction of Inspir ed Oxygen 0.44 11/01/22 23:00 11/02/22 02:36 11/02/22 05:36 Temperature 98.3 F 98.2 F Pulse Rate [Pulse Oximeter] 91 76 Respiratory Rate 18 24 20 Blood Pressure [Le ft Arm] Blood Pressure [Ri ght Arm] 155/81 H 138/79 Pulse Oximetry 94 88 92 Oxygen Delivery Me thod Room Air Nasal Cannula Nasal Cannula Oxygen Flow Rate 1 1 1 Fraction of Inspir ed Oxygen 11/02/22 09:38 11/02/22 09:38 11/02/22 11:00 Temperature 97 F L Pulse Rate [Pulse Oximeter] 72 Respiratory Rate 16 16 Blood Pressure [Le ft Arm] 145/87 H Blood Pressure [Ri ght Arm] Pulse Oximetry 96 96 92 Oxygen Delivery Me thod Room Air Room Air Room Air Oxygen Flow Rate Fraction of Inspir ed Oxygen 11/02/22 13:00 Temperature 98 F Pulse Rate [Pulse Oximeter] 75 Respiratory Rate 14 Blood Pressure [Le ft Arm] Blood Pressure [Ri ght Arm] Pulse Oximetry 95 Oxygen Delivery Me thod Room Air Oxygen Flow Rate Fraction of Inspir ed Oxygen DS: Data Data Completed and Pending Labs on day of discharge: Labs from last 24 hours 11/02/22 11/02/22 11/02/22 13:36 05:55 05:55 WBC RBC Hgb Hct MCV MCH MCHC RDW Coeff of Bib Plt Count Neut % (Auto) Lymph % (Auto) [place] % (Auto) Eos % (Auto) Baso % (Auto) Neut # (Auto) Lymph # (Auto) [place] # (Auto) Eos # (Auto) Baso # (Auto) Sodium 134 L Potassium 4.3 Chloride 101 Carbon Dioxide 29 BUN 15 Creatinine 0.8 Estimated Creat Clear 79.52 Estimated GFR 95 Glucose 144 H Calcium 8.[address] 1.14 Magnesium 2.1 Total Bilirubin 0.4 AST 63 H ALT 96 H Alkaline Phosphatase 137 C-Reactive Protein 5.2 H Total Protein 6.0 Albumin 2.9 L Procalcitonin 2.09 H HCG, Qual Stl C.difficile Tox PCR Vancomycin Trough Pending St C. diff Tox Epid 027 11/02/22 11/01/22 11/01/22 05:55 16:52 06:08 WBC 17.30 H RBC 3.49 L Hgb 10.1 L Hct 31.2 L MCV 89 MCH 29 MCHC 32 RDW Coeff of Bib 13.3 Plt Count 607 H Neut % (Auto) 87.3 H Lymph % (Auto) 3.5 L [place] % (Auto) 8.4 Eos % (Auto) 0.0 Baso % (Auto) 0.1 Neut # (Auto) 15.10 H Lymph # (Auto) 0.60 L [place] # (Auto) 1.50 H Eos # (Auto) 0.00 Baso # (Auto) 0.00 Sodium Potassium Chloride Carbon Dioxide BUN Creatinine Estimated Creat Clear Estimated GFR Glucose Calcium Ionized Calcium Rd Magnesium Total Bilirubin AST ALT Alkaline Phosphatase C-Reactive Protein Total Protein Albumin Procalcitonin HCG, Qual Negative Stl C.difficile Tox PCR Negative Vancomycin Trough St C. diff Tox Epid 027 PRESUMPTIVE NEGATIVE Preliminary micro results at discharge 10/28/22 15:45 Blood Culture - Preliminary Blood NO GROWTH AFTER 96 HOURS 10/28/22 15:45 Blood Culture - Preliminary Blood NO GROWTH AFTER 96 HOURS Discharge Plan Discharge Disposition: Home w/ Parent or Adult Date of Admission: 10/27/22 06:15 Attending Provider on Discharge: Georgina Liao Primary Care Provider: Lorenza Soni Condition: Stable Anticipated Discharge Date/Time: 11/02/22 20:00 Discharge Medications: New Vancomycin 1000 MG 0.9 % SODIUM CHLORIDE 250 ml 250 ML 260 mls/hr IVPB Q12H Ordered By: Georgina Liao MD Last Taken: 11/02/22 01:51 260 mls/hr Protocol: Vancomycin Vancomycin Override Severe non-purulent infection prednisone 20 mg tablet 20 mg PO BID Qty: 20 0RF Rx Instructions: speak with PCP or infectious disease regarding how to taper this medication. I will send in a taper with this initial bottle but you should verify the rat exterminator plan. prednisone 10 mg tablet 10 mg PO DAILY Qty: 11 0RF Rx Instructions: Take two tabs every morning for 3 days after initial 10 days; Take one tab every morning for 3 days, Take 1/2 tab every morning for four days. Then last bottle of prednisone (5mg) take daily until you see your doctor prednisone 5 mg tablet 5 mg PO DAILY Qty: 20 0RF Continued gabapentin 400 mg capsule 400 mg PO TID PRN Discontinued levofloxacin 500 mg tablet 500 mg PO DAILY Discharge Orders: Discharge Order (Routine); Ordered 11/02/22 Ordered By: Georgina Liao Patient Education: Vancomycin (By injection), Bacterial Pneumonia (GEN) Additional Instructions: My recommendation is stay in the hospital while on IV antibiotics and 24 hours off oxygen with resolution of lab abnormalities. If you discharge early: 1. IV antibiotics for at least the next 7 days twice a day here at the hospital. (1 gram Vancomycin via PICC line at approx 8 am, 8 pm) 2. Prednisone taper (three bottles went to [facility] - follow directions on bottles) 3. Use the aerobika and ISP every 2 hours while awake 4. Return immediately with fever, SOB, dizziness 5. See the outpatient docs I've recommended (pulmonary and infectious disease) 6. No tobacco, drinking, meth. No IV or inhaled recreational drugs. In addition to a very serious bacterial bilateral pneumonia you have a chemical irritation and inflammation (that is why you are going home on prednisone) in your lungs from drug use. You are contagious until you finish antibiotics so wear a mask when in the same room as others. Activity Level: Activity as Tolerated Discharge Diet: Regular Follow Up Appointments: [facility] [Outside] - 12/07/22 8:15 am (Consultation with Dr. Chip Davalos. ([phone]) [address] [place] [address]. This appointment is with a sewing machine bobbin winder. PULMONARY CLINIC - MRSA PNEUMONIA/HX OF METH USE. [place] [address] ) [facility] [Outside] - 11/09/22 (INFECTIOUS DISEASE OFFICE VISIT - MRSA PNEUMONIA HOSPITAL FOLLOWUP [facility] ? [address]- Referral sent you will be getting a phone call to set up an appointment. [address] [place] [id number] ) Lorenza Soni MD [Primary Care Provider] - 11/09/22 3:00 pm (Follow up with Dr. Soni. ([phone]) [address] [place] [address]) Forms: [employer] Info Instructions
--- NOTE | 2022-11-02 15:00 | CRLHL7_ITS ---
For Patients: As a result of the Cures Act, medical imaging exams and procedure reports are released immediately into your electronic medical record. You may view this report before your referring provider. If you have questions, please contact your health care provider. Indication: senior care antibiotics Technique: Grayscale ultrasound of the right brachial vein and right internal jugular vein. IMPRESSION: Sonographic guidance for right arm PICC line placement. Dictated by Avelino Noland MD @ 11/03/2022 11:00:47 AM (Electronically Signed)
== END 2022-11-02 18:30 | disposition home or self-care (01) | DRG 871 ==
LOC: ED 03:16 → MEDSURG 06:25
PROVIDERS: Family Medicine; Internal Medicine; Admitting Provider Internal Medicine; Emergency Provider Family Medicine; PCP Family Medicine; Visit Provider Internal Medicine
DX: A41.9 Sepsis, unspecified organism (principal); J15.29 Pneumonia due to other staphylococcus; J96.01 Acute respiratory failure with hypoxia; J86.9 Pyothorax without fistula; J68.0 Bronchitis and pneumonitis due to chemicals, gases, fumes and vapors; J91.8 Pleural effusion in other conditions classified elsewhere; E87.1 Hypo-osmolality and hyponatremia; E46 Unspecified protein-calorie malnutrition; Z68.1 Body mass index [BMI] 19.9 or less, adult; T43.651A Poisoning by methamphetamines accidental (unintentional), initial encounter; F41.1 Generalized anxiety disorder; F15.10 Other stimulant abuse, uncomplicated; E83.51 Hypocalcemia; E87.6 Hypokalemia; F10.11 Alcohol abuse, in remission; F17.210 Nicotine dependence, cigarettes, uncomplicated
CPT/HCPCS: 32555; 36415; 36573; 71045; 71046; 71250; 71260; 80048; 80053; 80076; 80202; 80306; 81003; 81015; 82040; 82042; 82150; 82247; 82330; 82465; 82945; 83605; 83615; 83735; 83986; 84145; 84146; 84155; 84157; 84295; 84311; 84703; 85025; 85379; 85610; 86140; 86703; 87015; 87040; 87070; 87081; 87102; 87116; 87186; 87205; 87449; 87493; 87635; 87899; 88112; 88305; 89051; 93005; 93306; 94640; 94664; 94761; 99284; 99285; G0378; A9270; C1751; J0456; J0610; J0696; J1650; J1885; J1940; J2405; J2543; J2930; J3370; J7030; J7050; J7070; J7120; Q9967

== ENCOUNTER 2022-11-07 17:25 | Outpatient (CLI) | payer OTHER, MEDICAID, SELFPAY | END 2022-11-07 17:26 | disposition home or self-care (01) | LOC: AMB 11-09 10:45 | PROVIDERS: PCP Family Medicine; Visit Provider Family Medicine | DX: J90 Pleural effusion, not elsewhere classified (principal) | CPT/HCPCS: A0425; A0426 ==

== ENCOUNTER → 2024-03-19 23:59 | Outpatient (RCR) | payer MEDICAID, SELFPAY ==
[2022-11-03 08:05] VITALS: BP 161/82; PULSE 71; RESP 25; TEMP 36.7; O2SAT 92
--- NOTE | 2022-11-03 10:06 | PC.NURSE ---
outpatient infusion 0800: pt c/o coughing and back pain. HTN. stable on room air. Infusion over 1 hour while pt slept. PICC asymptomatic and patent.
[2022-11-03 20:05] VITALS: BP 163/81; PULSE 80; RESP 24; TEMP 36.6; O2SAT 93
[2022-11-03] MEDS: 0.9 % SODIUM CHLORIDE 250 ml IV (20:18)
[2022-11-03] MEDS: SODIUM CHLORIDE 0.9 % (FLUSH) 10 ML SYRINGE 5 ML IVF (20:18)
--- NOTE | 2022-11-03 22:05 | PC.NURSE ---
PT ARRIVED TO UNIT @1954. VSS.PT RECEIVED OUTPATIENT ABX, WHICH INFUSED WITHOUT COMPLICATIONS. PT DEPARTED UNIT @2129.
[2022-11-04 07:00] VITALS: BP 152/80; PULSE 78; RESP 24; TEMP 36.7; O2SAT 91
--- NOTE | 2022-11-04 08:00 | PC.NURSE ---
Patient arrived to unit. VSS. patient labs drawn using sterile technique via PICC line and infusion started.
[2022-11-04 08:39] LABS: Hematocrit 27.4 % (33.0-51.0); Hemoglobin* 8.9 gm/dL (12.0-16.0); Mean Corpuscular HGB Conc 33 gm/dL (32-36); Mean Corpuscular Hemoglobin 29 pg (26-34); Mean Corpuscular Volume 89 fL (80-100); Platelet Count* 718 K/uL (140-440); Red Blood Count 3.07 m/uL (4.00-5.20); White Blood Count* 19.53 K/uL (4.50-11.00)
[2022-11-04 08:41] LABS: Slide Review Reflex No
[2022-11-04 08:45] LABS: Albumin* 2.3 g/dL (3.3-5.0)
[2022-11-04 08:46] LABS: Chloride* 104 mmol/L (96-114); Potassium* 3.7 mmol/L (3.6-5.1); Sodium* 135 mmol/L (135-149)
[2022-11-04 08:48] LABS: Alkaline Phosphatase* 104 U/L (40-150); Aspartate Amino Transferase* 28 U/L (12-35); Bilirubin Total* 0.3 mg/dL (0.1-1.5); Blood Urea Nitrogen* 8 mg/dL (5-24); Carbon Dioxide* 29 mmol/L (20-32); Creatinine* 0.7 mg/dL (0.5-1.5); Estimated Glomerular Filt Rate 111 ml/min; Total Protein* 4.9 g/dL (6.0-8.3)
[2022-11-04 08:49] LABS: Alanine Aminotransferase* 62 U/L (4-35); Calcium* 7.7 mg/dL (8.4-10.6); Glucose* 115 mg/dL (60-115)
[2022-11-04 09:50] VITALS: BP 124/65; PULSE 76; RESP 24; TEMP 36.9; O2SAT 90
--- NOTE | 2022-11-04 09:51 | PC.NURSE ---
Patient infusion complete. No s/s of reaction appreciated at this time. Patient VSS. Patient O2 at 90% and patient encouraged to do deep breathing exercises and IS at home. Patient verbalizes understanding. Provider notified of vital signs and labs. No changes made at this time.
[2022-11-04 19:00] VITALS: BP 137/73; PULSE 80; RESP 16; TEMP 37.2; O2SAT 92
[2022-11-04] MEDS: SODIUM CHLORIDE 0.9 % (FLUSH) 10 ML SYRINGE 5 ML IVF (20:24)
[2022-11-04 21:21] LABS: Procalcitonin* 0.56 ng/mL (<0.50)
--- NOTE | 2022-11-05 01:05 | PC.NURSE ---
PT ARRIVED FOR OUTPATIENT INFUSION OF ABX. VSS ON RA; AFEBRILE. PT APPEARS FATIGUED. MOTHER IS PRESENT WITHIN THE ROOM. ABX TX COMPLETED WITHOUT COMPLICATIONS. PT AND MOTHER DEPARTED UNIT @2136.
[2022-11-05 08:00] VITALS: BP 131/75; PULSE 76; RESP 16; TEMP 36.6; O2SAT 90
[2022-11-05 09:20] VITALS: BP 136/78; PULSE 74; RESP 16; TEMP 36.8; O2SAT 89
--- NOTE | 2022-11-05 11:30 | PC.NURSE ---
shift note: pt assisted by mother to bed. pt denies pain. infusion initiated after flush of picc line performed. placement intact for picc confirmed by blood return with aspiration prior to NS. site c/d/i. pt tolerated infusion w/o s/e. Picc flushed with ns flush. site remains intact/dry. pt wheeled out by mother at ga..
[2022-11-05] MEDS: SODIUM CHLORIDE 0.9 % (FLUSH) 10 ML SYRINGE 5 ML IVF ×2 (20:16→21:25)
[2022-11-05 20:21] VITALS: BP 130/74; PULSE 84; RESP 18; TEMP 37.2; O2SAT 87
[2022-11-05 21:30] VITALS: BP 141/81; PULSE 93; RESP 20; TEMP 37.2; O2SAT 87
--- NOTE | 2022-11-05 21:38 | PC.NURSE ---
Pt arrived at 1999 for abx infusion. PICC assessed for placement with a NSF and blood returned checked. Vancomycin started and it infused without problems. PICC flushed and pt dc'd. Mom wheeled pt out in wc.
[2022-11-06 08:12] VITALS: BP 136/80; PULSE 81; RESP 20; TEMP 36.8; O2SAT 91
[2022-11-06] MEDS: SODIUM CHLORIDE 0.9 % (FLUSH) 10 ML SYRINGE 5 ML IVF ×3 (08:21→21:52)
[2022-11-06] MEDS: 0.9 % SODIUM CHLORIDE 250 ml IV (08:22)
--- NOTE | 2022-11-06 09:21 | PC.NURSE ---
Patient stated she wasn't feeling well today. VS within normal limits. Encouraged patient to call PCP or go to ER if wanting to be seen by a provider. Patient verbally understood. Antibiotic completed. Left via ambulatory with mother.
[2022-11-06 21:53] VITALS: BP 124/80; PULSE 98; RESP 18; TEMP 36.6; O2SAT 98
[2022-11-07 08:35] VITALS: BP 130/73; PULSE 84; RESP 18; TEMP 36.9; O2SAT 94
[2022-11-07] MEDS: SODIUM CHLORIDE 0.9 % (FLUSH) 10 ML SYRINGE 5 ML IVF (08:55)
[2022-11-07 09:40] VITALS: BP 139/77; PULSE 86; RESP 28; TEMP 36.9; O2SAT 86
--- NOTE | 2022-11-07 12:01 | PC.NURSE ---
shift note: picc patent with aspiration and flush. site intact/no redness. pt states upper abd pain 8/10 starting last night. Pt states chest pain after coughing. sats 86-94% on RA. RR increased after ambulating from bathroom to bed to 28/min from 18/min. Mother at bedside. pt tolerated antibiotic infusion. Pt directed to ED for further evaluation for sob and pain.
== END | disposition home or self-care (01) ==
LOC: MS OUT 11-03 07:47
PROVIDERS: PCP Family Medicine; Visit Provider Family Medicine
DX: U07.1 COVID-19 (principal); Z79.899 Other long term (current) drug therapy
CPT/HCPCS: 36415; 80053; 84145; 85027; 96365; 99211; J3370; J7050